=== PATIENT | female | born 1950 | race Caucasian/White ===

== ENCOUNTER 2016-07-08 17:01 | Inpatient (IN) | payer BC, OTHER ==
[~2016-07-08] VITALS: Ht 165.1 cm; Wt 132.0 kg
[~2016-07-08 17:01] MED LIST: AMIT10TA13 PO; ATOR10 PO; CALCCHW25 PO; CIPR500T4 PO; FLUO20TA20 PO; HYDR-3533 PO; IRBE150T49 PO; LANTUS2P SC; NOVOLOGP2 SQ; PANT20TA PO; TAB-TAB PO; VERA360C PO; ZYRT10TA12 PO
[2016-07-08] MEDS ORDERED: METOPROLOL TARTRATE 25 MG TAB PO PRN (21:30)
[2016-07-08] MEDS ORDERED: INSULIN HUMAN REGULAR 1,000 UNITS/10 ML VIAL SQ PRN (21:30)
[2016-07-08] MEDS ORDERED: SODIUM CHLORID 0.9% 500 ML IV SCH (21:30)
[2016-07-08 21:33] VITALS: BP 180/67; PULSE 58; RESP 16; TEMP 97.8; O2SAT 95
[2016-07-08] MEDS ORDERED: HYDROmorphone HCL PF 1 MG/ML VIAL IV PUSH PRN (22:00)
[2016-07-08] MEDS ORDERED: ENOXAPARIN SODIUM 40 MG/0.4 ML SYRINGE SQ SCH (22:00)
[2016-07-08] MEDS ORDERED: NALOXONE HCL 0.4 MG/ML AMP IV PRN (22:00)
[2016-07-08] MEDS ORDERED: BISACODYL 10 MG SUPP PR PRN (22:00)
[2016-07-08] MEDS ORDERED: SODIUM CHLORIDE 0.9% FLUSH 5 ML FLUSH FLUSH PRN (22:00)
[2016-07-08] MEDS ORDERED: ONDANSETRON HCL 4 MG/2 ML VIAL IVP PRN (22:00)
[2016-07-08] MEDS ORDERED: ACETAMINOPHEN 325 MG TAB PO PRN (22:00)
[2016-07-08] MEDS ORDERED: GLUCAGON 1 MG/ML VIAL OTHER PRN (22:15)
[2016-07-08] MEDS ORDERED: DEXTROSE 50% IN WATER 50 ML VIAL(D50) IV PUSH PRN (22:15)
[2016-07-08] MEDS: INSULIN DETEMIR 100 UNITS/ML VIAL SQ SCH (22:34)
[2016-07-08] MEDS: PANTOPRAZOLE SOD 20 MG DELAYED RELEASE TAB PO SCH (22:34)
[2016-07-08] MEDS: ATORVASTATIN 10 MG TAB PO SCH (22:34)
[2016-07-08] MEDS ORDERED: MULT-135 PO (23:02)
[2016-07-08] MEDS ORDERED: IRBE150T15 PO (23:02)
[2016-07-08] MEDS ORDERED: LIPI10TA PO (23:02)
[2016-07-08] MEDS ORDERED: LANTUS2P SQ (23:02)
[2016-07-08] MEDS ORDERED: CALC750T PO (23:02)
[2016-07-08] MEDS ORDERED: PANT20TA2 PO (23:02)
[2016-07-08] MEDS ORDERED: [UNRECOGNIZED DRUG - CODE] PO (23:02)
[2016-07-08] MEDS ORDERED: ZYRT10CA PO (23:02)
[2016-07-08] MEDS ORDERED: FLUO1TAB17 PO (23:02)
[2016-07-08] MEDS ORDERED: NOVOLOGP2 SQ (23:02)
[2016-07-08] MEDS ORDERED: NOVORP2 SQ (23:02)
[2016-07-08 23:30] VITALS: BP 183/89; PULSE 67; RESP 16; TEMP 98.1; O2SAT 95
[2016-07-09 04:00] VITALS: BP 184/69; PULSE 68; RESP 16; TEMP 99.5; O2SAT 96
[2016-07-09] MEDS: ACETAMINOPHEN/HYDROcodone 325 MG/5 MG TAB PO PRN (04:27)
[2016-07-09] MEDS: INSULIN ASPART SUPPLEMENTAL SCALE SQ SCH ×4 (06:23→20:08)
[2016-07-09 07:25] VITALS: BP 153/69; PULSE 74; RESP 17; TEMP 97.8; O2SAT 93
[2016-07-09 07:36] LABS: APTT (PATIENT) 29.3 SEC (24.3-30.1); AUTOMATED NEUTROPHIL # 6.2 TH/MM3 (1.8-7.7); BASOPHIL # 0.1 TH/MM3 (0-0.2); BASOPHIL % 1.3 % (0.0-2.0); EOSINOPHIL # 0.2 TH/MM3 (0-0.4); EOSINOPHIL % 1.9 % (0.0-4.0); HEMATOCRIT 30.6 % (35.0-46.0); HEMO FLAGS DIFF FINAL; LYMPH % 17.4 % (9.0-44.0); LYMPHOCYTE # 1.6 TH/MM3 (1.0-4.8); MEAN CELL VOLUME 84.9 FL (80.0-100.0); MEAN CORPUSCULAR HEMOGLOBIN 27.3 PG (27.0-34.0); MEAN CORPUSCULAR HGB CONC 32.1 % (32.0-36.0); NEUT % 66.4 % (16.0-70.0); PLATELET COUNT 228 TH/MM3 (150-450); PROTHROMBIN TIME - PATIENT 10.7 SEC (9.8-11.6); RED CELL DISTRIBUTION WIDTH 13.3 % (11.6-17.2); WHITE BLOOD COUNT 9.4 TH/MM3 (4.0-11.0)
[2016-07-09 07:48] LABS: POTASSIUM 4.6 MEQ/L (3.5-5.1)
[2016-07-09] MEDS ORDERED: FAMOTIDINE 20 MG/2 ML VIAL ONE (08:05)
[2016-07-09] MEDS ORDERED: ACETAMINOPHEN 1000 MG/100 ML VIAL IV ONE (08:05)
[2016-07-09] MEDS ORDERED: DEXAMETHASONE SOD PHOS 4 MG/ML VIAL ONE (08:05)
[2016-07-09] MEDS ORDERED: ARTIFICIAL TEARS OPTH OINT 3.5 APPLIC/3.5 GM TUBO ONE (08:05)
[2016-07-09] MEDS: FLUoxetine HCL 20 MG CAP PO SCH (08:29)
[2016-07-09] MEDS: VERAPAMIL HCL 180 MG SUSTAINED RELEASE TAB PO SCH (08:29)
[2016-07-09] MEDS: LOSARTAN 50 MG TAB PO SCH (08:29)
[2016-07-09] MEDS ORDERED: SODIUM CHLORIDE 0.9% FLUSH 5 ML FLUSH FLUSH SCH (09:00)
[2016-07-09] MEDS ORDERED: PNEUMOCOCCAL POLYVALENT INJ 25 MCG/0.5 ML SYR IM ONE (09:00)
[2016-07-09] MEDS ORDERED: ATORVASTATIN 10 MG TAB PO SCH ×2 (09:00)
--- NOTE | 2016-07-09 09:13 | EKG ---
Date Performed: 07/09/2016 Time Performed: 05:35:12 PTAGE: 66 years EKG: Sinus rhythm . Nonspecific lateral ST abnormality. Borderline ECG PREVIOUS TRACING : 10/24/2015 16.54 No significant change from previous tracing noted. DOCTOR: Jeffrey Muro Interpretating Date/Time 07/09/2016 09:12:03
[2016-07-09] MEDS ORDERED: ceFAZolin INJ 1,000 MG VIAL IV ONE ×2 (09:21→12:07)
[2016-07-09] MEDS ORDERED: GENTAMICIN SULFATE 80 MG/2 ML VIAL ONE (09:54)
[2016-07-09] MEDS ORDERED: ONDANSETRON HCL 4 MG/2 ML VIAL IV PUSH ONE (14:17)
[2016-07-09] MEDS ORDERED: hydrALAZINE HCL 20 MG/ML VIAL IV ONE (14:17)
[2016-07-09] MEDS ORDERED: PROPOFOL 200 MG/20 ML AMP IV ONE (14:17)
[2016-07-09] MEDS ORDERED: PHENYLEPH/NS 1000 MCG/10 ML SYR IV ONE (14:17)
[2016-07-09] MEDS ORDERED: SODIUM CHLOR 0.9% 250 ML INJ 250 ML IV ONE (14:18)
[2016-07-09] MEDS ORDERED: LACTATED RINGER'S 1000 ML INJ 1,000 ML IV ONE (14:18)
[2016-07-09] MEDS ORDERED: oxyCODONE/ACETAMINOPHEN 5 MG/325 MG TAB PO PRN (15:00)
[2016-07-09] MEDS ORDERED: SODIUM CHLORIDE 0.9% FLUSH 5 ML FLUSH IVF PRN (15:00)
[2016-07-09] MEDS ORDERED: Post-op Orders (for Pharmacy) MISC XX ONE (15:00)
[2016-07-09] MEDS ORDERED: ACETAMINOPHEN 325 MG TAB PO PRN (15:00)
[2016-07-09] MEDS ORDERED: MISCELLANEOUS NURSING INFORMATION XX PRN (15:00)
--- NOTE | 2016-07-09 15:03 | PD.ORT.PN ---
Subjective Subjective Remarks C/O right shoulder and left elbow pain Objective Vitals Vital Signs Date Time Temp Pulse Resp B/P Pulse Ox O2 Delivery O2 Flow Rate FiO2 07/09/16 07:25 97.8 74 17 153/69 93 07/09/16 04:00 99.5 68 16 184/69 96 07/08/16 23:30 98.1 67 16 183/89 95 07/08/16 21:33 97.8 58 16 180/67 95 I/O 07/08/16 07/08/16 07/08/16 07/09/16 07/09/16 07/09/16 07:00 15:00 23:00 07:00 15:00 23:00 Intake Total 240 ml 0 ml Balance 240 ml 0 ml Intake Oral 240 ml 0 ml # Voids 1 1 # Bowel Movements 0 0 Result Diagram: 07/09/16 0700 07/09/16 0700 Other Results Laboratory Tests Test 07/09/16 07:00 Prothrombin Time 10.7 SEC (9.8-11.6) Prothromb Time International 1.0 RATIO Ratio Objective Remarks see full dictation Assessment & Plan Problem List: (1) Supracondylar fracture of distal end of femur with intracondylar extension (2) Closed 3-part fracture of proximal end of left humerus Assessment and Plan Options discussed Informed consent obtained for ORIF of left elbow and right shoulder Shemar Yusuf MD Jul 09, 2016 15:03
[2016-07-09] MEDS ORDERED: fentaNYL CITRATE 250 MCG/5 ML AMP ONE (15:04)
[2016-07-09] MEDS ORDERED: MIDAZOLAM HCL 2 MG/2 ML VIAL ONE (15:04)
[2016-07-09] MEDS: LACTATED RINGER'S 1000 ML INJ 1,000 ML IV SCH ×2 (15:05→20:09)
[2016-07-09] MEDS ORDERED: MORPHINE SULFATE 4 MG/ML INJ ONE (15:05)
[2016-07-09] MEDS ORDERED: DO NOT ADM ANY ANTICOAGULANT DRUGS XX PRN (15:09)
--- NOTE | 2016-07-09 15:10 | RADRPT ---
EXAM DATE/TIME: 07/09/2016 14:15 [facility] COMPARISON: No previous studies available for comparison. INDICATIONS : ORIF left elbow. MEDICAL HISTORY : None. SURGICAL HISTORY : None. ENCOUNTER: Initial ACUITY: 1 day PAIN SCORE: Non-responsive. LOCATION: Left elbow CONCLUSION: Fluoroscopic images during placement of compression plates and screws along the distal humerus and pr oximal ulna fixating fractures. Lew Odonnell MD on July 09, 2016 at 15:08 Board Certified Radiologist. This report was verified electronically.
--- NOTE | 2016-07-09 15:10 | RADRPT ---
EXAM DATE/TIME: 07/09/2016 11:00 [facility] COMPARISON: No previous studies available for comparison. INDICATIONS : ORIF right shoulder. MEDICAL HISTORY : None. SURGICAL HISTORY : None. ENCOUNTER: Initial ACUITY: 1 day PAIN SCORE: Non-responsive. LOCATION: Right proximal shoulder CONCLUSION: Fluoroscopic images during placement compression plate and screws along the right humerus fixating fr acture in near-anatomic in alignment. Lew Odonnell MD on July 09, 2016 at 15:08 Board Certified Radiologist. This report was verified electronically.
--- NOTE | 2016-07-09 15:41 | HHI.HP ---
[facility] Fran Head MD Admission Diagnosis Diagnoses: Chief Complaint: fall Travel History International Travel<30 Days: No Contact w/Intl Traveler <30 Da: No History of Present Illness This is 66 y/o F with Pmhx of T2DM, GERD, HTN, and HLD who p/w fall. Patient was seen after surgery so was sedated but able to answer simple questions. History taken from MR in chart and confirmed with patient. Patient stated that she trip and injured her arm. Patient was transferred from [place]. She stated that she did not have any LOC, CP, SOB, palpitation of lightheadedness/ dizziness. Patient was seen in [facility] and found to have supracondylar fracture of distal end of femur with intracondylar extension and closed 3 part fracture of proximal end of left humerus. patient does have hx of multiple fractures including the elbow. She was on prednisone for 20 years. Review of Systems Constitutional: DENIES: Diaphoretic episodes, Fatigue, Fever, Weight gain, Weight loss, Chills, Dizziness, Change in appetite, Night Sweats Endocrine: DENIES: Abnorml menstrual pattern, Heat/cold intolerance, Polydipsia , Polyuria, Polyphagia Eyes: DENIES: Blurred vision, Diplopia, Eye inflammation, Eye pain, Vision loss , Photosensitivity, Double Vision Ears, nose, mouth, throat: DENIES: Tinnitus, Hearing loss, Vertigo, Nasal discharge, Oral lesions, Throat pain, Hoarseness, Ear Pain, Running Nose, Epistaxis, Sinus Pain, Toothache, Odynophagia Respiratory: DENIES: Apneas, Cough, Snoring, Wheezing, Hemoptysis, Sputum production, Shortness of breath Cardiovascular: DENIES: Chest pain, Palpitations, Syncope, Dyspnea on Exertion , PND, Lower Extremity Edema, Orthopnea, Claudication Gastrointestinal: DENIES: Abdominal pain, Black stools, Bloody stools, Constipation, Diarrhea, Nausea, Vomiting, Difficulty Swallowing, Anorexia Genitourinary: DENIES: Abnormal vaginal bleeding, Dysmenorrhea, Dyspareunia, Sexual dysfunction, Urinary frequency, Urinary incontinence, Urgency, Hematuria , Dysuria, Nocturia, Vaginal discharge Musculoskeletal: COMPLAINS OF: Joint pain, DENIES: Muscle aches, Stiffness, Joint Swelling, Back pain, Neck pain Integumentary: DENIES: Abnormal pigmentation, Pruritus, Rash, Nail changes, Breast masses, Breast skin changes, Nipple discharge Hematologic/lymphatic: DENIES: Bruising, Lymphadenopathy Immunologic/allergic: DENIES: Eczema, Urticaria Neurologic: DENIES: Abnormal gait, Headache, Localized weakness, Paresthesias, Seizures, Speech Problems, Tremor, Poor Balance Psychiatric: DENIES: Anxiety, Confusion, Mood changes, Depression, Hallucinations, Agitation, Suicidal Ideation, Homicidal Ideation, Delusions Past Family Social History Past Medical History T2DM, GERD, HTN, HLP, hx of ovarian ca, fibromyalgia. Past Surgical History hysterectomy, gastric sleeve, cholecystectomy, left ankle surgery Reported Medications Reported Meds & Active Scripts Active Lortab 5 mg/325 mg (Hydrocodone/Acetaminophen 5 mg/325 mg) 1 Tab 1 Tab PO Q6H PRN Cipro (Ciprofloxacin HCl) 500 Mg Tab 500 Mg PO BID Reported Novolog Inj (Insulin Aspart) 1,000 Unit/10 Ml Vial 10 Units SQ ACHS SLIDING SCALE Isoptin SR (Verapamil HCl) 240 Mg Tab 360 Mg PO DAILY Pantoprazole (Pantoprazole Sodium) 20 Mg Tab 20 Mg PO HS Multi Vitamin (Multiple Vitamin) 1 Tab Tab 1 Tab PO DAILY Irbesartan 150 Mg Tab 150 Mg PO DAILY Lantus Inj (Insulin Glargine) 1,000 Unit/10 Ml Vial 35 Units SQ HS Novolin R Inj (Insulin Human Regular) 1,000 Unit/10 Ml Vial 2-12 Units SQ ACHS Max dose at bedtime:( )units; sugars less than 70,(0) units; sugars 150-199,(2)unit; sugars 200-249,(4)units; sugars 250-299,(7) units; sugars 300-349,(10)units; sugars greater than 349,(12)units Fluoxetine HCl (Fluoxetine HCl (Pmdd)) 20 Mg Tab 20 Mg PO DAILY Zyrtec Allergy (Cetirizine HCl) 10 Mg Cap 10 Mg PO HS Calcium + D + K (Calcium-Vitamins D & K) 750-500-40 Mg-Unit-Mcg Tab 1 Tab PO DAILY Lipitor (Atorvastatin Calcium) 10 Mg Tab 10 Mg PO HS Pantoprazole Sodium 20 Mg Tab 20 PO HS Lantus (Insulin Glargine) 100 Units/Ml Inj 35 Unit SC HS Zyrtec (Cetirizine HCl) 10 Mg Tab 10 Mg PO HS Calcium + D (Calcium Carbonate/Cholecalciferol) Chw 1 Tab PO DAILY DO NOT TAKE UNTIL RESTARTED BY DR. HARDWICK Fluoxetine Hcl (Fluoxetine HCl) 20MG Cap 1 Cap PO DAILY Multivitamin (Multivitamins) 1 Tab Tab 1 Tab PO DAILY Novolog (Insulin Aspart) 100 Units/Ml Inj 10 Units SQ DIRECTED DO NOT TAKE UNTIL RESTARTED BY DR. HARDWICK SLIDING SCALE Avapro (Irbesartan) 150 Mg Tab 150 Mg PO DAILY Elavil (Amitriptyline HCl) 10 Mg Tab 20 Mg PO HS Lipitor (Atorvastatin Calcium) 10 Mg Tab 10 Mg PO DAILY DO NOT TAKE UNTIL RESTARTED BY DR. HARDWICK Isoptin Sr (Verapamil HCl) 360 Mg Cap 360 Mg PO DAILY Allergies: Coded Allergies: Penicillin (Verified Allergy, Intermediate, Hives, 10/24/15) Sulfa (Verified Allergy, Intermediate, Hives, 10/24/15) Active Ordered Medications Current Medications Lactated Ringer's 1,000 ml @ 30 mls/hr Q24H IV ; Start 07/08/16 at 21:30 Sodium Chloride (NS 500 ml Inj) 500 ml @ 30 mls/hr [id number] IV ; Start 07/08/16 at 21:30; Stop 07/09/16 at 21:29 Insulin Human Regular (NovoLIN R INJ) See Protocol Table ... UNSCH X1 PRN SQ SEE PROTOCOL; Start 07/08/16 at 21:30; Stop 07/08/16 at 22:11; Status DC Metoprolol Tartrate (Lopressor) 25 mg UNSCH X1 PRN PO SEE LABEL COMMENTS; Start 07/08/16 at 21:30; Stop 07/09/16 at 21:29 IV Flush (NS Flush) 2 ml UNSCH PRN FLUSH FLUSH AFTER USING IV ACCESS; Start at 22:00; Stop 07/09/16 at 15:07; Status DC IV Flush (NS Flush) 2 ml BID FLUSH ; Start 07/09/16 at 09:00; Stop 07/09/16 at 15:07; Status DC Acetaminophen (Tylenol) 650 mg Q4H PRN PO Fever, Headache, Pain 1-4; Start at 22:00; Stop 07/09/16 at 15:06; Status DC Ondansetron HCl (Zofran Inj) 4 mg Q6H PRN IVP NAUSEA OR VOMITING; Start at 22:00 Bisacodyl (Dulcolax Supp) 10 mg DAILY PRN [place] CONSTIPATION; Start 07/08/16 at 22 :00 Magnesium Hydroxide (Milk Of Magnesia Liq) 30 ml Q12H PRN PO CONSTIPATION; Start 07/08/16 at 22:00 Enoxaparin Sodium (Lovenox Inj) 40 mg Q24H SQ ; Start 07/08/16 at 22:00; Stop at 22:00; Status DC Naloxone HCl (Narcan Inj) 0.4 mg UNSCH PRN IV SEE LABEL COMMENTS; Start at 22:00 Acetaminophen/ Hydrocodone Bitart ([place] 5-325 Mg) 1 tab Q6H PRN PO PAIN SCALE 5 TO 10 Last administered on 07/09/16t 04:27; Start 07/08/16 at 22:00 Hydromorphone HCl (Dilaudid Pf Inj) 0.5 mg Q4H PRN IV PUSH BREAKTHROUGH PAIN Last administered on 07/08/16t 22:18; Start 07/08/16 at 22:00; Stop 07/09/16 at 15:06; Status DC Pneumococcal Polyvalent Vaccine (Pneumovax-23 Inj) 25 mcg ONCE ONCE IM ; Start 07/09/16 at 09:00; Stop 07/09/16 at 09:01; Status Cancel Atorvastatin Calcium (Lipitor) 10 mg DAILY PO ; Start 07/09/16 at 09:00; Stop at 09:00; Status DC Fluoxetine HCl (PROzac) 20 mg DAILY PO ; Start 07/09/16 at 09:00 Losartan Potassium (Cozaar) 50 mg DAILY PO ; Start 07/09/16 at 09:00 Verapamil HCl (Isoptin Sr) 360 mg DAILY PO ; Start 07/09/16 at 09:00 Atorvastatin Calcium (Lipitor) 10 mg HS PO ; Start 07/09/16 at 09:00; Stop 07/09 at 09:00; Status DC Insulin Detemir (Levemir Inj) 20 units HS SQ Last administered on 07/08/16 22: 34; Start 07/08/16 at 22:15 Dextrose (D50w (Vial) Inj) 25 ml UNSCH PRN IV PUSH HYPOGLYCEMIA-SEE COMMENTS; Start 07/08/16 at 22:15 Glucagon (Glucagon Inj) 1 mg UNSCH PRN OTHER HYPOGLYCEMIA-SEE COMMENTS; Start 07/08/16 at 22:15 Insulin Aspart (NovoLOG SUPPLEMENTAL SCALE) 1 ACHS SLIDING SCALE SQ ; Start at 07:00 Pantoprazole Sodium (Protonix) 20 mg HS PO Last administered on 07/08/16 22:34 ; Start 07/08/16 at 22:15 Atorvastatin Calcium (Lipitor) 10 mg HS PO Last administered on 07/08/16 22:34 ; Start 07/08/16 at 22:30 Acetaminophen (Ofirmev Inj) 1,000 mg STK-MED ONCE IV ; Start 07/09/16 at 08:05; Stop 07/09/16 at 08:06; Status DC Artificial Tears (Lacrilube Opht Oint) 3.5 applic STK-MED ONCE .ROUTE ; Start at 08:05; Stop 07/09/16 at 08:06; Status DC Famotidine (Pepcid Inj) 20 mg STK-MED ONCE .ROUTE ; Start 07/09/16 at 08:05; Stop 07/09/16 at 08:06; Status DC Dexamethasone Sodium Phosphate (Decadron Inj) 4 mg STK-MED ONCE .ROUTE ; Start 07/09/16 at 08:05; Stop 07/09/16 at 08:06; Status DC Gentamicin Sulfate (Gentamicin Inj) 240 mg STK-MED ONCE .ROUTE Last administered on 07/09/16 10:00; Start 07/09/16 at 09:54; Stop 07/09/16 at 09:55 ; Status DC Pneumococcal Polyvalent Vaccine (Pneumovax-23 Inj) 25 mcg ONCE ONCE IM ; Start 07/10/16 at 10:00; Stop 07/10/16 at 10:01 Cefazolin Sodium (Ancef Inj) 2,000 mg STK-MED ONCE IV Last administered on 07/09 09:21; Start 07/09/16 at 09:21; Stop 07/09/16 at 12:20; Status DC Cefazolin Sodium 1000 mg 1,000 mg STK-MED ONCE IV Last administered on t 12:07; Start 07/09/16 at 12:07; Stop 07/09/16 at 12:20; Status DC Lactated Ringer's (Lr 1000 ml Inj) 1,000 ml @ 100 mls/hr Q10H IV ; Start at 14:50 IV Flush (NS Flush) 2 ml UNSCH PRN IVF FLUSH AFTER USING IV ACCESS; Start 07/09 at 15:00 IV Flush (NS Flush) 2 ml BID IVF ; Start 07/09/16 at 21:00 Miscellaneous Information (Post-op Orders (for Pharmacy)) STAT ONCE XX ; Start 07/09/16 at 15:00; Stop 07/09/16 at 15:05; Status DC Enoxaparin Sodium 40 mg 40 mg Q24H SQ ; Start 07/10/16 at 14:00 Cefazolin Sodium/ Dextrose (Ancef 2 Gm Premix) 50 ml @ 100 mls/hr Q8H IV ; Start 07/09/16 at 16:00 Miscellaneous Information UNSCH PRN XX SEE LABEL COMMENTS; Start 07/09/16 at 15:00 Oxycodone/ Acetaminophen (Percocet 5-325 Mg) 1 tab Q4H PRN PO PAIN LESS THAN 5 ON SCALE; Start 07/09/16 at 15:00 Oxycodone/ Acetaminophen (Percocet 5-325 Mg) 2 tab Q6H PRN PO PAIN GREATER THAN/EQUAL TO 5; Start 07/09/16 at 15:00 Acetaminophen (Tylenol) 650 mg Q6H PRN PO Temperature > 101.5; Start 07/09/16 at 15:00 Multivitamins/ Minerals Therapeutic (Theragran M Tab) 1 tab DAILY PO ; Start at 09:00 Hydromorphone HCl (Dilaudid BRAKE TESTER Inj) 6 mg UNSCH IV ; Start 07/09/16 at 15:00 BRAKE TESTER Dosage Infused (Pha) 1 Q8HR OTHER ; Start 07/09/16 at 22:00 Midazolam HCl (Versed Inj) 2 mg STK-MED ONCE .ROUTE ; Start 07/09/16 at 15:04; Stop 07/09/16 at 15:05; Status DC Fentanyl Citrate (fentaNYL INJ) 100 mcg STK-MED ONCE .ROUTE ; Start 07/09/16 at 15:04; Stop 07/09/16 at 15:05; Status DC Fentanyl Citrate (fentaNYL INJ) 250 mcg STK-MED ONCE .ROUTE ; Start 07/09/16 at 15:04; Stop 07/09/16 at 15:05; Status DC Morphine Sulfate (Morphine Inj) 8 mg STK-MED ONCE .ROUTE ; Start 07/09/16 at 15: 05; Stop 07/09/16 at 15:06; Status DC Family History noncontributory Social History 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 denied tobacco or alcohol use. Physical Exam Vital Signs Vital Signs Date Time Temp Pulse Resp B/P Pulse Ox O2 Delivery O2 Flow Rate FiO2 07/09/16 15:04 99.0 99 14 188/70 97 Nasal Cannula 4 07/09/16 07:25 97.8 74 17 153/69 93 07/09/16 04:00 99.5 68 16 184/69 96 07/08/16 23:30 98.1 67 16 183/89 95 07/08/16 21:33 97.8 58 16 180/67 95 Physical Exam GENERAL: This is a well-nourished, well-developed patient, in no apparent distress but is sedated due to recent general anesthesia use. SKIN: No rashes, ecchymoses or lesions. Cool and dry. HEAD: Atraumatic. Normocephalic. No temporal or scalp tenderness. EYES: Pupils equal round and reactive. Extraocular motions intact. No scleral icterus. No injection or drainage. ENT: Nose without bleeding, purulent drainage or septal hematoma. Throat without erythema, tonsillar hypertrophy or exudate. Uvula midline. Airway patent. NECK: Trachea midline. No JVD or lymphadenopathy. Supple, nontender, no meningeal signs. CARDIOVASCULAR: Regular rate and rhythm without murmurs, gallops, or rubs. RESPIRATORY: Clear to auscultation. Breath sounds equal bilaterally. No wheezes , rales, or rhonchi. GASTROINTESTINAL: Abdomen soft, non-tender, nondistended. No hepato-splenomegaly , or palpable masses. No guarding. MUSCULOSKELETAL: Extremities without clubbing, cyanosis, or edema. No joint tenderness, effusion, or edema noted. No calf tenderness. Negative Homans sign bilaterally. NEUROLOGICAL:drowsy. Cranial nerves II through XII intact. Motor and sensory grossly within normal limits. Five out of 5 muscle strength in all muscle groups. Normal speech. Laboratory Laboratory Tests Test 07/09/16 07/09/16 07:00 09:00 White Blood Count 9.4 Red Blood Count 3.60 Hemoglobin 9.8 Hematocrit 30.6 Mean Corpuscular Volume 84.9 Mean Corpuscular Hemoglobin 27.3 Mean Corpuscular Hemoglobin 32.1 Concent Red Cell Distribution Width 13.3 Platelet Count 228 Mean Platelet Volume 9.0 Neutrophils (%) (Auto) 66.4 Lymphocytes (%) (Auto) 17.4 Monocytes (%) (Auto) 13.0 Eosinophils (%) (Auto) 1.9 Basophils (%) (Auto) 1.3 Neutrophils # (Auto) 6.2 Lymphocytes # (Auto) 1.6 Monocytes # (Auto) 1.2 Eosinophils # (Auto) 0.2 Basophils # (Auto) 0.1 CBC Comment DIFF FINAL Differential Comment Prothrombin Time 10.7 Prothromb Time International 1.0 Ratio Activated Partial 29.3 Thromboplast Time Sodium Level 142 Potassium Level 4.6 Chloride Level 109 Carbon Dioxide Level 23.0 Anion Gap 10 Blood Urea Nitrogen 34 Creatinine 1.65 Estimat Glomerular Filtration 31 Rate Random Glucose 143 Calcium Level 9.3 Blood Type O POSITIVE Antibody Screen NEGATIVE Crossmatch Leukocyte-Reduced Red Blood Cells Blood Bank Comment Result Diagram: 07/09/16 0700 07/09/16 0700 Imaging Last Impressions Shoulder X-Ray 07/09/16 0000 Signed Impressions: Service Date/Time: Saturday, July 09, 2016 11:00 - CONCLUSION: Fluoroscopic images during placement compression plate and screws along the right humerus fixating fracture in near-anatomic in alignment. Lew Odonnell MD Elbow X-Ray 07/09/16 0000 Signed Impressions: Service Date/Time: Saturday, July 09, 2016 14:15 - CONCLUSION: Fluoroscopic images during placement of compression plates and screws along the distal humerus and proximal ulna fixating fractures. Lew Odonnell MD Assessment and Plan Assessment and Plan 66 y/o F Supracondylar fracture of distal end of femur with intracondylar extension/ closed 3-part proximal end of left humerus -s/p ORIF shoulder and elbow today. -being managed by [facility] T2DM/HTN/HLPGERD -home medication already resumed -SSI CKD -? chronic in nature -strict I/O -continue to monitor. -avoid nephrotoxins. -patient on fluid. -continue to monitor Cr. -will need to try to obtain baseline. maybe difficult to obtain MR since today is sunday. DVT prophylaxis -lovenox. Code Status FULL Physician Certification 2 Midnight Certification Type: Admission for Inpatient Services Order for Inpatient Services The services are ordered in accordance with Medicare regulations or non- Medicare payer requirements, as applicable. In the case of services not specified as inpatient-only, they are appropriately provided as inpatient services in accordance with the 2-midnight benchmark. Estimated LOS (days): 3 3 days is the estimated time the patient will need to remain in the hospital, assuming treatment plan goals are met and no additional complications. Post-Hospital Plan: Home Health Sultana Cordero MD Jul 09, 2016 15:41
--- NOTE | 2016-07-09 15:47 | RADRPT ---
EXAM DATE/TIME: 07/09/2016 15:12 [facility] COMPARISON: No previous studies available for comparison. INDICATIONS : Central line placement MEDICAL HISTORY : Diabetes mellitus type II. SURGICAL HISTORY : None. ENCOUNTER: Initial ACUITY: 1 day PAIN SCORE: Non-responsive. LOCATION: Bilateral chest FINDINGS: A single view of the chest demonstrates the lungs to be symmetrically aerated without evidence of mas s, infiltrate or effusion. The cardiomediastinal contours are unremarkable. Osseous structures are intact. CONCLUSION: 1. Right jugular central line with tip in the right atrium. No pneumothorax. Lew Odonnell MD on July 09, 2016 at 15:45 Board Certified Radiologist. This report was verified electronically.
--- NOTE | 2016-07-09 15:59 | MB ---
cc: ERICA LOPEZ M.D. DATE OF CONSULTATION: 07/09/2016. REASON FOR CONSULTATION: Consultation requested to evaluate right shoulder displaced fracture and left elbow intra-articular displaced fracture. 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 She tripped and fell and landed on both upper extremities and sustained fractures to her right shoulder which was displaced and her left elbow which was an intra-articular supracondylar, intercondylar and displaced. She was seen and [facility] in [place] where a Dr. Wagner contacted me via telephone and requested transfer to [facility] for treatment as the patient lives in [facility]. The patient was transferred to the medical service last night with a consultation placed with the undersigned. PAST MEDICAL HISTORY: She has significant past medical history of: 1. Diabetes. 2. History of ovarian cancer status post hysterectomy. 3. History of gallbladder disease and a laparoscopic cholecystectomy. 4. Additionally, she has had a sleeve gastrectomy. 5. Previous orthopedic surgery for her left ankle, her right elbow and her left wrist. 6. She had prior previous tympanostomy tubes. MEDICATIONS: Her regular medications are: 1. Zyrtec. 2. Irbesartan for blood pressure. 3. Amitriptyline. 4. Fluoxetine. 5. Verapamil. 6. Lipitor. 7. NovoLog. 8. Lantus. 9. Calcium. 10. Vitamin D. 11. Propranolol. 12. Ciprofloxacin. ALLERGIES: She reports an allergy to: 1. PENICILLIN. 2. SULFA. PHYSICAL EXAMINATION: GENERAL: The patient is alert, oriented AND appropriate. HEAD, EYES, EARS, NOSE, THROAT: Her head is atraumatic and normocephalic. There are no bruises about her face. UPPER EXTREMITIES: She has tenderness to palpation about her right shoulder. The skin is intact. Left upper extremity is in a splint. She has tenderness to palpation about the elbow. The shoulder and wrist are nontender. Both hands she is able to flex and extend. She has good capillary refill and pulses intact. LOWER EXTREMITIES: Good range of motion of hips, knees and ankle with motor and sensory neurologic examinations intact. IMAGING STUDIES: X-rays reviewed right shoulder which shows a three-part fracture with shaft and valgus impacted humeral head and a displaced greater trochanteric fragment. The left elbow x-rays show comminuted intra-articular supracondylar. These x-rays were reviewed off a computer disk brought from the outside hospital. ASSESSMENT: Displaced right shoulder fracture and displaced intraarticular left elbow fracture. MEDICAL DECISION-MAKING: Her condition was discussed and the options of treatment were discussed. The recommendation is surgical repair. Risks and benefits were thoroughly discussed including discussion of the risk of infection, nerve damage, blood vessel damage, failure of the internal fixation, need for arthroplasty type surgery including total elbow replacement, the risk of stiffness and mechanical complications which would necessitate revision surgery in both locations, the possibility of anesthetic complications, medical complications, and unforeseen possible complications. All of her questions were answered. A detailed informed consent was obtained. MD KAYCEE Leach/NORI /3:06 PM /3:50 PM
[2016-07-09] MEDS: HYDROmorphone HCL PCA 6 MG/30 ML IV SCH (16:00)
[2016-07-09] MEDS: ceFAZolin 2 GM PREMIX 50 ML IV SCH ×2 (16:00→23:07)
[2016-07-09 16:14] VITALS: BP 125/60; PULSE 79; RESP 16; TEMP 97.2; O2SAT 97
[2016-07-09] MEDS: LACTATED RINGER'S 1000 ML IV SCH (20:00)
[2016-07-09] MEDS: INSULIN DETEMIR 100 UNITS/ML VIAL SQ SCH (20:08)
[2016-07-09] MEDS: MAGNESIUM HYDROXIDE SUSP 30 ML CUP PO PRN (20:09)
[2016-07-09] MEDS: ATORVASTATIN 10 MG TAB PO SCH (20:09)
[2016-07-09] MEDS: PANTOPRAZOLE SOD 20 MG DELAYED RELEASE TAB PO SCH (20:09)
[2016-07-09] MEDS: SODIUM CHLORIDE 0.9% FLUSH 5 ML FLUSH IVF SCH (20:10)
[2016-07-09 20:20] VITALS: BP 177/79; PULSE 78; RESP 18; TEMP 96; O2SAT 100
--- NOTE | 2016-07-09 20:59 | MP ---
cc: ERICA LOPEZ M.D. DATE OF SURGERY 07/09/16 PREOPERATIVE DIAGNOSIS 1. Left elbow supracondylar intercondylar displaced fracture. 2. Right shoulder displaced three-part fracture. PROCEDURE 1. Left elbow open reduction, internal fixation supracondylar intercondylar fracture using 2.6 Synthes headless screws and Synthes specialty locking plate supracondylar humeral system. 2. Right shoulder/proximal humerus open reduction, internal fixation using Synthes specialty locking plate. ANESTHETIC General SURGEON Erica Lopez MD METAL DRILL OPERATOR SURGEON Phan TOM ESTIMATED BLOOD LOSS 200 cc. DRAINS None. SPECIMEN None. COMPLICATIONS None known. INDICATION Ludy Horta is a 66-year-old female who sustained a fall while attending a conference with students in [place] and was transferred from [facility] to [facility] with a displaced fracture her right shoulder and left elbow. The risks, benefits were thoroughly discussed and a detail informed consent was obtained. The application assistant, Phan Real, is an advanced registered nurse practitioner. His skill set was medically necessary for the performance of both operations. PROCEDURE The patient is brought to the operating room. She was placed under general anesthetic. We operated on the right shoulder first. We prepped and draped in the usual sterile fashion. C-arm was on the opposite side, anterior approach to shoulder, deltopectoral interval mobilizing the cephalic vein, subperiosteal the proximal humerus, identified the fracture fragments. Tag suture posterior superior in the rotator cuff to mobilize this fragment. Close to the anatomic alignment of the fragments as much as could be and then provisional fixation with K-wires then alignment of the Synthes specialty plate and then clamped this and locked this and K-wire this into place and then proceeded with our various locking screws and cortical screws with overall excellent fixation. Full range of motion of the shoulder when we were done without crepitation. Multiple final x-rays obtained, irrigated out with copious amounts of irrigation. The original suture was incorporated into the plate. We proceeded to close in layers absorbable suture and we used subcuticular on the skin with Steri-Strips applied. The entire set up for the right shoulder was taken down and the left upper extremity, left elbow was draped and prepped in the usual sterile fashion. IV antibiotics were additionally given and we proceeded to prep and drape and proceeded with reviewing our time-out and then proceeding with a direct posterior approach to the elbow and first we made medial and lateral windows and mobilized the ulnar nerve and placed a temporary vessel loop. Based on a combination of the fracture decision was made for osteotomy. Osteotomy performed. We did a provisional drilling for later repair and then flipped the osteotomy down and further mobilized the fracture fragments and obtained an excellent exposure and then proceeded to piecemeal place the fracture fragments together. The trochlear groove was split into a front and a back and three headless screws were used to recreate this. Then there was an additional two fragments that were connected to this, one inferiorly in the metaphyseal region and one posteriorly and then additional intra-articular fracture fragment was applied with two horizontal headless screws. Then we proceeded to use fracture clamp and anatomically align the metaphysis to the diaphysis and then proceeded with our ulnar-sided plate and placed our distal locking screws and our mid locking screws excellent fixation. Then proceeded with the lateral column reconstruction. There was some missing bone but there was capitellar bone which did align with the radius and we preserved our ligaments and we used a tension band technique posteriorly on the posterior aspect of the lateral column and pulled this into position and then fashioned and our posterior column plate and proceeded to place cortical and locking screws as indicated. We were looking directly in the joint to see the length of the screws and we did not see any of the screws come into the joint and with range of motion there was no crepitation. We irrigated out with copious amounts of irrigation. We visualized this alignment fluoroscopically and saw that overall hardware looked good, although, it is confusing because the headless screws are partly in the cartilage but not in the joint and then we anatomically aligned our osteotomy of the olecranon and then fixated this with the original plan screw and then two additional screws with excellent fixation. We now irrigated out throughout with copious amounts of irrigation and took our final x-rays, AP, lateral and multiple views. Again, irrigate out with copious amounts of irrigation and proceeded to close in layers absorbable sutures. Ultimately, annalise are used on the skin. Xeroform applied, posterior mold splint applied. The patient was awoken and returned to the recovery room in stable condition. MD KAYCEE Leach/ANGEL /3:13 PM /8:46 PM
[2016-07-09] MEDS: PCA - TOTAL MG DILAUDID DELIVERED PER SHIFT OTHER SCH (22:00)
[2016-07-09 23:45] VITALS: BP 138/63; PULSE 77; RESP 18; TEMP 96.9; O2SAT 99
[2016-07-10 03:40] VITALS: BP 133/62; PULSE 87; RESP 18; TEMP 97.9; O2SAT 98
[2016-07-10] MEDS: HYDROmorphone HCL PCA 6 MG/30 ML IV SCH (03:50)
[2016-07-10] MEDS: PCA - TOTAL MG DILAUDID DELIVERED PER SHIFT OTHER SCH ×3 (06:00→22:00)
[2016-07-10] MEDS: INSULIN ASPART SUPPLEMENTAL SCALE SQ SCH ×4 (06:11→21:52)
[2016-07-10 06:24] LABS: HEMATOCRIT 26.1 % (35.0-46.0); REVIEW FLAG FINAL
[2016-07-10 07:41] VITALS: BP 118/53; PULSE 82; RESP 18; TEMP 98.9; O2SAT 93
[2016-07-10] MEDS: LOSARTAN 50 MG TAB PO SCH (09:00)
[2016-07-10] MEDS: VERAPAMIL HCL 180 MG SUSTAINED RELEASE TAB PO SCH (09:00)
[2016-07-10] MEDS: SODIUM CHLORIDE 0.9% FLUSH 5 ML FLUSH IVF SCH ×2 (09:00→21:00)
[2016-07-10] MEDS ORDERED: PNEUMOCOCCAL POLYVALENT INJ 25 MCG/0.5 ML SYR IM ONE (10:00)
[2016-07-10] MEDS: ceFAZolin 2 GM PREMIX 50 ML IV SCH ×2 (10:01→16:00)
[2016-07-10] MEDS: FLUoxetine HCL 20 MG CAP PO SCH (10:03)
[2016-07-10] MEDS: MULTIVITAMINS/MINERALS THERAPEUTIC TAB PO SCH (10:03)
[2016-07-10] MEDS: oxyCODONE/ACETAMINOPHEN 5 MG/325 MG TAB PO PRN ×2 (10:04→17:55)
[2016-07-10] MEDS: LACTATED RINGER'S 1000 ML INJ 1,000 ML IV SCH (10:50)
--- NOTE | 2016-07-10 10:52 | PD.ORT.PN ---
Subjective Subjective Remarks Patient comfortable. Pain controlled. 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 Objective Vitals Vital Signs Date Time Temp Pulse Resp B/P Pulse Ox O2 Delivery O2 Flow Rate FiO2 07/10/16 07:41 98.9 82 18 118/53 93 07/10/16 03:50 17 07/10/16 03:40 97.9 87 18 133/62 98 07/09/16 23:45 96.9 77 18 138/63 99 07/09/16 22:20 Nasal Cannula 3.00 07/09/16 22:00 17 07/09/16 20:20 96.0 78 18 177/79 100 07/09/16 20:07 100 Nasal Cannula 3.00 07/09/16 16:14 97.2 79 16 125/60 97 07/09/16 16:00 14 07/09/16 16:00 98.7 77 14 146/68 96 Nasal Cannula 3 07/09/16 15:45 75 14 145/70 96 Nasal Cannula 3 07/09/16 15:30 75 14 140/68 97 Nasal Cannula 3 07/09/16 15:15 86 14 152/75 97 Nasal Cannula 4 07/09/16 15:04 99.0 99 14 188/70 97 Nasal Cannula 4 I/O 07/09/16 07/09/16 07/09/16 07/10/16 07/10/16 07/10/16 07:00 15:00 23:00 07:00 15:00 23:00 Intake Total 0 ml 0 ml 3738 ml 1371 ml Output Total 1050 ml 500 ml Balance 0 ml 0 ml 2688 ml 871 ml Intake Oral 0 ml 0 ml 480 ml 480 ml IV Total 458 ml 891 ml Other 2800 ml Output Urine Total 850 ml 500 ml Estimated Blood Loss 200 ml # Voids 1 0 # Bowel Movements 0 0 0 0 Result Diagram: 07/10/16 0605 07/09/16 0700 Objective Remarks Right shoulder dressing intact C/D/I 2+ radial pulses good movement of digits NVI Left elbow posterior splint and miroslava wrap in place digits swollen good movement of digits denies numbness/tingling +sensation Assessment & Plan Ortho Post Op Day #: 1 Problem List: (1) Supracondylar fracture of distal end of femur with intracondylar extension (2) Closed 3-part fracture of proximal end of left humerus Assessment and Plan 1) ORIF of right shoulder 2) ORIF of left elbow Pain management Occupational therapy - LUE: No ROM. RUE: Active ROM, no weight bearing. Physical therapy: Gait training D/C planning SNF vs Home Monitor Phan Real Jul 10, 2016 10:52
[2016-07-10 11:15] VITALS: BP 108/54; PULSE 83; RESP 18; TEMP 97.8; O2SAT 92
[2016-07-10 12:47] VITALS: O2SAT 99
[2016-07-10] MEDS: ENOXAPARIN SODIUM 40 MG/0.4 ML SYRINGE SQ SCH (14:48)
[2016-07-10 15:50] VITALS: BP 126/59; PULSE 90; RESP 18; TEMP 99.5; O2SAT 93
--- NOTE | 2016-07-10 16:49 | HHI.PR ---
Subjective Remarks patient has no complaints. he stated pain is controlled with the FLIGHT MANAGER pump. Tolerating diet. Objective Vitals Vital Signs Date Time Temp Pulse Resp B/P Pulse Ox O2 Delivery O2 Flow Rate FiO2 07/10/16 12:47 99 21 07/10/16 11:15 97.8 83 18 108/54 92 07/10/16 07:41 98.9 82 18 118/53 93 07/10/16 03:50 17 07/10/16 03:40 97.9 87 18 133/62 98 07/09/16 23:45 96.9 77 18 138/63 99 07/09/16 22:20 Nasal Cannula 3.00 07/09/16 22:00 17 07/09/16 20:20 96.0 78 18 177/79 100 07/09/16 20:07 100 Nasal Cannula 3.00 I/O 07/09/16 07/09/16 07/09/16 07/10/16 07/10/16 07/10/16 07:00 15:00 23:00 07:00 15:00 23:00 Intake Total 0 ml 0 ml 3738 ml 1371 ml Output Total 1050 ml 500 ml Balance 0 ml 0 ml 2688 ml 871 ml Intake Oral 0 ml 0 ml 480 ml 480 ml IV Total 458 ml 891 ml Other 2800 ml Output Urine Total 850 ml 500 ml Estimated Blood Loss 200 ml # Voids 1 0 # Bowel Movements 0 0 0 0 Result Diagram: 07/10/16 0605 07/09/16 0700 Objective Remarks Gen NAD CV RRR. no r/m/g Abd soft NDNT Ext left arm in sling. sensation is intact. Medications and IVs Current Medications Lactated Ringer's 1,000 ml @ 30 mls/hr Q24H IV ; Start 07/08/16 at 21:30 Sodium Chloride (NS 500 ml Inj) 500 ml @ 30 mls/hr [id number] IV ; Start 07/08/16 at 21:30; Stop 07/09/16 at 21:29; Status DC Insulin Human Regular (NovoLIN R INJ) See Protocol Table ... UNSCH X1 PRN SQ SEE PROTOCOL; Start 07/08/16 at 21:30; Stop 07/08/16 at 22:11; Status DC Metoprolol Tartrate (Lopressor) 25 mg UNSCH X1 PRN PO SEE LABEL COMMENTS; Start 07/08/16 at 21:30; Stop 07/09/16 at 21:29; Status DC IV Flush (NS Flush) 2 ml UNSCH PRN FLUSH FLUSH AFTER USING IV ACCESS; Start at 22:00; Stop 07/09/16 at 15:07; Status DC IV Flush (NS Flush) 2 ml BID FLUSH ; Start 07/09/16 at 09:00; Stop 07/09/16 at 15:07; Status DC Acetaminophen (Tylenol) 650 mg Q4H PRN PO Fever, Headache, Pain 1-4; Start at 22:00; Stop 07/09/16 at 15:06; Status DC Ondansetron HCl (Zofran Inj) 4 mg Q6H PRN IVP NAUSEA OR VOMITING; Start at 22:00 Bisacodyl (Dulcolax Supp) 10 mg DAILY PRN GA CONSTIPATION; Start 07/08/16 at 22 :00 Magnesium Hydroxide (Milk Of Helena Cheng) 30 ml Q12H PRN PO CONSTIPATION Last administered on 07/09/16 20:09; Start 07/08/16 at 22:00 Enoxaparin Sodium (Lovenox Inj) 40 mg Q24H SQ ; Start 07/08/16 at 22:00; Stop at 22:00; Status DC Naloxone HCl (Narcan Inj) 0.4 mg UNSCH PRN IV SEE LABEL COMMENTS; Start at 22:00 Acetaminophen/ Hydrocodone Bitart ([place] 5-325 Mg) 1 tab Q6H PRN PO PAIN SCALE 5 TO 10 Last administered on 07/09/16 04:27; Start 07/08/16 at 22:00 Hydromorphone HCl (Dilaudid Pf Inj) 0.5 mg Q4H PRN IV PUSH BREAKTHROUGH PAIN Last administered on 07/08/16 22:18; Start 07/08/16 at 22:00; Stop 07/09/16 at 15:06; Status DC Pneumococcal Polyvalent Vaccine (Pneumovax-23 Inj) 25 mcg ONCE ONCE IM ; Start 07/09/16 at 09:00; Stop 07/09/16 at 09:01; Status Cancel Atorvastatin Calcium (Lipitor) 10 mg DAILY PO ; Start 07/09/16 at 09:00; Stop at 09:00; Status DC Fluoxetine HCl (PROzac) 20 mg DAILY PO Last administered on 07/10/16 10:03; Start 07/09/16 at 09:00 Losartan Potassium (Cozaar) 50 mg DAILY PO ; Start 07/09/16 at 09:00 Verapamil HCl (Isoptin Sr) 360 mg DAILY PO ; Start 07/09/16 at 09:00 Atorvastatin Calcium (Lipitor) 10 mg HS PO ; Start 07/09/16 at 09:00; Stop 07/09 at 09:00; Status DC Insulin Detemir (Levemir Inj) 20 units HS SQ Last administered on 07/09/16 20: 08; Start 07/08/16 at 22:15 Dextrose (D50w (Vial) Inj) 25 ml UNSCH PRN IV PUSH HYPOGLYCEMIA-SEE COMMENTS; Start 07/08/16 at 22:15 Glucagon (Glucagon Inj) 1 mg UNSCH PRN OTHER HYPOGLYCEMIA-SEE COMMENTS; Start 07/08/16 at 22:15 Insulin Aspart (NovoLOG SUPPLEMENTAL SCALE) 1 ACHS SLIDING SCALE SQ Last administered on 07/10/16 12:20; Start 07/09/16 at 07:00 Pantoprazole Sodium (Protonix) 20 mg HS PO Last administered on 07/09/16 20:09 ; Start 07/08/16 at 22:15 Atorvastatin Calcium (Lipitor) 10 mg HS PO Last administered on 07/09/16 20:09 ; Start 07/08/16 at 22:30 Acetaminophen (Ofirmev Inj) 1,000 mg STK-MED ONCE IV ; Start 07/09/16 at 08:05; Stop 07/09/16 at 08:06; Status DC Artificial Tears (Lacrilube Opht Oint) 3.5 applic STK-MED ONCE .ROUTE ; Start at 08:05; Stop 07/09/16 at 08:06; Status DC Famotidine (Pepcid Inj) 20 mg STK-MED ONCE .ROUTE ; Start 07/09/16 at 08:05; Stop 07/09/16 at 08:06; Status DC Dexamethasone Sodium Phosphate (Decadron Inj) 4 mg STK-MED ONCE .ROUTE ; Start 07/09/16 at 08:05; Stop 07/09/16 at 08:06; Status DC Gentamicin Sulfate (Gentamicin Inj) 240 mg STK-MED ONCE .ROUTE Last administered on 07/09/16 10:00; Start 07/09/16 at 09:54; Stop 07/09/16 at 09:55 ; Status DC Pneumococcal Polyvalent Vaccine (Pneumovax-23 Inj) 25 mcg ONCE ONCE IM ; Start 07/10/16 at 10:00; Stop 07/10/16 at 10:01; Status DC Cefazolin Sodium (Ancef Inj) 2,000 mg STK-MED ONCE IV Last administered on 07/09 09:21; Start 07/09/16 at 09:21; Stop 07/09/16 at 12:20; Status DC Cefazolin Sodium 1000 mg 1,000 mg STK-MED ONCE IV Last administered on 12:07; Start 07/09/16 at 12:07; Stop 07/09/16 at 12:20; Status DC Lactated Ringer's (Lr 1000 ml Inj) 1,000 ml @ 100 mls/hr Q10H IV Last administered on 07/09/16 20:09; Start 07/09/16 at 14:50 IV Flush (NS Flush) 2 ml UNSCH PRN IVF FLUSH AFTER USING IV ACCESS; Start 07/09 at 15:00 IV Flush (NS Flush) 2 ml BID IVF Last administered on 07/09/16 20:10; Start at 21:00 Miscellaneous Information (Post-op Orders (for Pharmacy)) STAT ONCE XX ; Start 07/09/16 at 15:00; Stop 07/09/16 at 15:05; Status DC Enoxaparin Sodium 40 mg 40 mg Q24H SQ Last administered on 07/10/16 14:48; Start 07/10/16 at 14:00 Cefazolin Sodium/ Dextrose (Ancef 2 Gm Premix) 50 ml @ 100 mls/hr Q8H IV Last administered on 07/10/16 10:01; Start 07/09/16 at 16:00 Miscellaneous Information UNSCH PRN XX SEE LABEL COMMENTS; Start 07/09/16 at 15:00 Oxycodone/ Acetaminophen (Percocet 5-325 Mg) 1 tab Q4H PRN PO PAIN LESS THAN 5 ON SCALE; Start 07/09/16 at 15:00 Oxycodone/ Acetaminophen (Percocet 5-325 Mg) 2 tab Q6H PRN PO PAIN GREATER THAN/EQUAL TO 5 Last administered on 07/10/16 10:04; Start 07/09/16 at 15:00 Acetaminophen (Tylenol) 650 mg Q6H PRN PO Temperature > 101.5; Start 07/09/16 at 15:00 Multivitamins/ Minerals Therapeutic (Theragran M Tab) 1 tab DAILY PO Last administered on 07/10/16 10:03; Start 07/10/16 at 09:00 Hydromorphone HCl (Dilaudid FLIGHT MANAGER Inj) 6 mg UNSCH IV Last administered on 03:50; Start 07/09/16 at 15:00 FLIGHT MANAGER Dosage Infused (Pha) 1 Q8HR OTHER Last administered on 07/10/16 06:00; Start 07/09/16 at 22:00 Midazolam HCl (Versed Inj) 2 mg STK-MED ONCE .ROUTE ; Start 07/09/16 at 15:04; Stop 07/09/16 at 15:05; Status DC Fentanyl Citrate (fentaNYL INJ) 100 mcg STK-MED ONCE .ROUTE ; Start 07/09/16 at 15:04; Stop 07/09/16 at 15:05; Status DC Fentanyl Citrate (fentaNYL INJ) 250 mcg STK-MED ONCE .ROUTE ; Start 07/09/16 at 15:04; Stop 07/09/16 at 15:05; Status DC Morphine Sulfate (Morphine Inj) 8 mg STK-MED ONCE .ROUTE ; Start 07/09/16 at 15: 05; Stop 07/09/16 at 15:06; Status DC Miscellaneous Information ALL NURSING DEPARTME... UNSCH PRN XX SEE LABEL COMMENTS; Start 07/09/16 at 15:09; Stop 07/10/16 at 15:08; Status DC A/P Assessment and Plan Displaced right shoulder fracture and displaced intraarticular left elbow fracture. -s/p ORIF shoulder and elbow on 07/10/16. -being managed by Ortho -on FLIGHT MANAGER. T2DM/HTN/HLPGERD -continue home medication -SSI CKD -chronic she is at baseline. -strict I/O -continue to monitor. -avoid nephrotoxins. -continue to monitor Cr. DVT prophylaxis -on lovenox Dispo: once on oral medication will be d/c with HH or to SNF. She is on FLIGHT MANAGER now which Ortho is managing. Sultana Cordero MD Jul 10, 2016 16:49
[2016-07-10 20:50] VITALS: BP 148/65; PULSE 90; RESP 17; TEMP 99; O2SAT 94
[2016-07-10] MEDS: ATORVASTATIN 10 MG TAB PO SCH (21:51)
[2016-07-10] MEDS: PANTOPRAZOLE SOD 20 MG DELAYED RELEASE TAB PO SCH (21:51)
[2016-07-10] MEDS: INSULIN DETEMIR 100 UNITS/ML VIAL SQ SCH (21:52)
[2016-07-10] MEDS: LACTATED RINGER'S 1000 ML IV SCH (22:03)
[2016-07-11] VITALS (8 sets, daily range): BP systolic 95–161; BP diastolic 47–67; PULSE 78–90; RESP 17–18; TEMP 97.4–100; O2SAT 93–96
[2016-07-11] MEDS: ceFAZolin 2 GM PREMIX 50 ML IV SCH ×3 (00:45→17:05)
[2016-07-11] MEDS: PCA - TOTAL MG DILAUDID DELIVERED PER SHIFT OTHER SCH ×3 (06:00→22:00)
[2016-07-11] MEDS: INSULIN ASPART SUPPLEMENTAL SCALE SQ SCH ×4 (06:23→21:59)
[2016-07-11 06:49] LABS: HEMATOCRIT 23.2 % (35.0-46.0); REVIEW FLAG FINAL
[2016-07-11] MEDS ORDERED: OXYC1TAB63 PO (07:50)
--- NOTE | 2016-07-11 07:56 | PD.ORT.PN ---
Subjective Subjective Remarks C/O right shoulder and left elbow pain controlled Objective Vitals Vital Signs Date Time Temp Pulse Resp B/P Pulse Ox O2 Delivery O2 Flow Rate FiO2 07/11/16 06:00 18 07/11/16 00:15 99.1 88 17 161/63 93 07/10/16 22:00 18 07/10/16 20:50 99.0 90 17 148/65 94 07/10/16 18:55 18 07/10/16 15:50 99.5 90 18 126/59 93 07/10/16 14:00 16 07/10/16 12:47 99 21 07/10/16 11:15 97.8 83 18 108/54 92 I/O 07/10/16 07/10/16 07/10/16 07/11/16 07/11/16 07/11/16 07:00 15:00 23:00 07:00 15:00 23:00 Intake Total 1371 ml 720 ml 1226 ml 705 ml Output Total 500 ml 1000 ml 900 ml Balance 871 ml -280 ml 326 ml 705 ml Intake Oral 480 ml 720 ml 480 ml IV Total 891 ml 746 ml 705 ml Output Urine Total 500 ml 1000 ml 900 ml # Voids 0 # Bowel Movements 0 0 0 Result Diagram: 07/11/16 0620 07/09/16 0700 Objective Remarks Right shoulder dressing intact C/D/I 2+ radial pulses good movement of digits NVI Left elbow posterior splint and miroslava wrap in place digits mild/moderate swelling good movement of digits motor intact sensation intact but slightly decreased in thumb Assessment & Plan Ortho Post Op Day #: 2 Problem List: (1) Supracondylar fracture of distal end of femur with intracondylar extension (2) Closed 3-part fracture of proximal end of left humerus Assessment and Plan 1) ORIF of right shoulder 2) ORIF of left elbow Pain management 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 RUE: Active ROM, no weight bearing. Physical therapy: Gait training D/C planning inhouse rehab Ok to D/C from ortho [facility] today or tomorrow Follow up in office in 2 weeks Shemar Yusuf MD Jul 11, 2016 07:56
[2016-07-11] MEDS: SODIUM CHLORIDE 0.9% FLUSH 5 ML FLUSH IVF SCH ×2 (09:00→21:00)
[2016-07-11] MEDS: LOSARTAN 50 MG TAB PO SCH (10:01)
[2016-07-11] MEDS: MULTIVITAMINS/MINERALS THERAPEUTIC TAB PO SCH (10:01)
[2016-07-11] MEDS: FLUoxetine HCL 20 MG CAP PO SCH (10:01)
[2016-07-11] MEDS: VERAPAMIL HCL 180 MG SUSTAINED RELEASE TAB PO SCH (10:01)
[2016-07-11] MEDS: oxyCODONE/ACETAMINOPHEN 5 MG/325 MG TAB PO PRN ×3 (10:02→21:58)
[2016-07-11] MEDS: MAGNESIUM HYDROXIDE SUSP 30 ML CUP PO PRN (10:02)
--- NOTE | 2016-07-11 11:04 | HHI.PR ---
Subjective Remarks Patient stated she feels fatigue and weak but otherwise no complaints. Denied any pain. no BM yet. Objective Vitals Vital Signs Date Time Temp Pulse Resp B/P Pulse Ox O2 Delivery O2 Flow Rate FiO2 07/11/16 08:00 97.4 88 18 151/67 94 07/11/16 06:00 18 07/11/16 04:00 100.0 90 17 159/65 93 07/11/16 00:15 99.1 88 17 161/63 93 07/10/16 22:00 18 07/10/16 20:50 99.0 90 17 148/65 94 07/10/16 18:55 18 07/10/16 15:50 99.5 90 18 126/59 93 07/10/16 14:00 16 07/10/16 12:47 99 21 07/10/16 11:15 97.8 83 18 108/54 92 I/O 07/10/16 07/10/16 07/10/16 07/11/16 07/11/16 07/11/16 07:00 15:00 23:00 07:00 15:00 23:00 Intake Total 1371 ml 720 ml 1226 ml 945 ml Output Total 500 ml 1000 ml 900 ml 1450 ml Balance 871 ml -280 ml 326 ml -505 ml Intake Oral 480 ml 720 ml 480 ml 240 ml IV Total 891 ml 746 ml 705 ml Output Urine Total 500 ml 1000 ml 900 ml 1450 ml # Voids 0 # Bowel Movements 0 0 0 0 Result Diagram: 07/11/16 0620 07/09/16 0700 Objective Remarks Gen NAD CV RRR. no r/m/g Abd soft NDNT Ext left arm in sling. sensation is intact. Medications and IVs Current Medications Lactated Ringer's 1,000 ml @ 30 mls/hr Q24H IV Last administered on 07/10/16t 22:03; Start 07/08/16 at 21:30 Sodium Chloride (NS 500 ml Inj) 500 ml @ 30 mls/hr [id number] IV ; Start 07/08/16 at 21:30; Stop 07/09/16 at 21:29; Status DC Insulin Human Regular (NovoLIN R INJ) See Protocol Table ... UNSCH X1 PRN SQ SEE PROTOCOL; Start 07/08/16 at 21:30; Stop 07/08/16 at 22:11; Status DC Metoprolol Tartrate (Lopressor) 25 mg UNSCH X1 PRN PO SEE LABEL COMMENTS; Start 07/08/16 at 21:30; Stop 07/09/16 at 21:29; Status DC IV Flush (NS Flush) 2 ml UNSCH PRN FLUSH FLUSH AFTER USING IV ACCESS; Start at 22:00; Stop 07/09/16 at 15:07; Status DC IV Flush (NS Flush) 2 ml BID FLUSH ; Start 07/09/16 at 09:00; Stop 07/09/16 at 15:07; Status DC Acetaminophen (Tylenol) 650 mg Q4H PRN PO Fever, Headache, Pain 1-4; Start at 22:00; Stop 07/09/16 at 15:06; Status DC Ondansetron HCl (Zofran Inj) 4 mg Q6H PRN IVP NAUSEA OR VOMITING; Start at 22:00 Bisacodyl (Dulcolax Supp) 10 mg DAILY PRN [place] CONSTIPATION; Start 07/08/16 at 22 :00 Magnesium Hydroxide (Milk Of Magnrubio Liq) 30 ml Q12H PRN PO CONSTIPATION Last administered on 07/11/16 10:02; Start 07/08/16 at 22:00 Enoxaparin Sodium (Lovenox Inj) 40 mg Q24H SQ ; Start 07/08/16 at 22:00; Stop at 22:00; Status DC Naloxone HCl (Narcan Inj) 0.4 mg UNSCH PRN IV SEE LABEL COMMENTS; Start at 22:00 Acetaminophen/ Hydrocodone Bitart ([place] 5-325 Mg) 1 tab Q6H PRN PO PAIN SCALE 5 TO 10 Last administered on 07/09/16 04:27; Start 07/08/16 at 22:00 Hydromorphone HCl (Dilaudid Pf Inj) 0.5 mg Q4H PRN IV PUSH BREAKTHROUGH PAIN Last administered on 07/08/16 22:18; Start 07/08/16 at 22:00; Stop 07/09/16 at 15:06; Status DC Pneumococcal Polyvalent Vaccine (Pneumovax-23 Inj) 25 mcg ONCE ONCE IM ; Start 07/09/16 at 09:00; Stop 07/09/16 at 09:01; Status Cancel Atorvastatin Calcium (Lipitor) 10 mg DAILY PO ; Start 07/09/16 at 09:00; Stop at 09:00; Status DC Fluoxetine HCl (PROzac) 20 mg DAILY PO Last administered on 07/11/16 10:01; Start 07/09/16 at 09:00 Losartan Potassium (Cozaar) 50 mg DAILY PO Last administered on 07/11/16 10:01 ; Start 07/09/16 at 09:00 Verapamil HCl (Isoptin Sr) 360 mg DAILY PO Last administered on 07/11/16 10: 01; Start 07/09/16 at 09:00 Atorvastatin Calcium (Lipitor) 10 mg HS PO ; Start 07/09/16 at 09:00; Stop 07/09 at 09:00; Status DC Insulin Detemir (Levemir Inj) 20 units HS SQ Last administered on 07/10/16 21: 52; Start 07/08/16 at 22:15 Dextrose (D50w (Vial) Inj) 25 ml UNSCH PRN IV PUSH HYPOGLYCEMIA-SEE COMMENTS; Start 07/08/16 at 22:15 Glucagon (Glucagon Inj) 1 mg UNSCH PRN OTHER HYPOGLYCEMIA-SEE COMMENTS; Start 07/08/16 at 22:15 Insulin Aspart (NovoLOG SUPPLEMENTAL SCALE) 1 ACHS SLIDING SCALE SQ Last administered on 07/11/16 06:23; Start 07/09/16 at 07:00 Pantoprazole Sodium (Protonix) 20 mg HS PO Last administered on 07/10/16 21:51 ; Start 07/08/16 at 22:15 Atorvastatin Calcium (Lipitor) 10 mg HS PO Last administered on 07/10/16 21:51 ; Start 07/08/16 at 22:30 Acetaminophen (Ofirmev Inj) 1,000 mg STK-MED ONCE IV ; Start 07/09/16 at 08:05; Stop 07/09/16 at 08:06; Status DC Artificial Tears (Lacrilube Opht Oint) 3.5 applic STK-MED ONCE .ROUTE ; Start at 08:05; Stop 07/09/16 at 08:06; Status DC Famotidine (Pepcid Inj) 20 mg STK-MED ONCE .ROUTE ; Start 07/09/16 at 08:05; Stop 07/09/16 at 08:06; Status DC Dexamethasone Sodium Phosphate (Decadron Inj) 4 mg STK-MED ONCE .ROUTE ; Start 07/09/16 at 08:05; Stop 07/09/16 at 08:06; Status DC Gentamicin Sulfate (Gentamicin Inj) 240 mg STK-MED ONCE .ROUTE Last administered on 07/09/16 10:00; Start 07/09/16 at 09:54; Stop 07/09/16 at 09:55 ; Status DC Pneumococcal Polyvalent Vaccine (Pneumovax-23 Inj) 25 mcg ONCE ONCE IM ; Start 07/10/16 at 10:00; Stop 07/10/16 at 10:01; Status DC Cefazolin Sodium (Ancef Inj) 2,000 mg STK-MED ONCE IV Last administered on 07/09 09:21; Start 07/09/16 at 09:21; Stop 07/09/16 at 12:20; Status DC Cefazolin Sodium 1000 mg 1,000 mg STK-MED ONCE IV Last administered on 12:07; Start 07/09/16 at 12:07; Stop 07/09/16 at 12:20; Status DC Lactated Ringer's (Lr 1000 ml Inj) 1,000 ml @ 100 mls/hr Q10H IV Last administered on 07/09/16 20:09; Start 07/09/16 at 14:50 IV Flush (NS Flush) 2 ml UNSCH PRN IVF FLUSH AFTER USING IV ACCESS; Start 07/09 at 15:00 IV Flush (NS Flush) 2 ml BID IVF Last administered on 07/09/16 20:10; Start at 21:00 Miscellaneous Information (Post-op Orders (for Pharmacy)) STAT ONCE XX ; Start 07/09/16 at 15:00; Stop 07/09/16 at 15:05; Status DC Enoxaparin Sodium 40 mg 40 mg Q24H SQ Last administered on 07/10/16 14:48; Start 07/10/16 at 14:00 Cefazolin Sodium/ Dextrose (Ancef 2 Gm Premix) 50 ml @ 100 mls/hr Q8H IV Last administered on 07/11/16 10:02; Start 07/09/16 at 16:00 Miscellaneous Information UNSCH PRN XX SEE LABEL COMMENTS; Start 07/09/16 at 15:00 Oxycodone/ Acetaminophen (Percocet 5-325 Mg) 1 tab Q4H PRN PO PAIN LESS THAN 5 ON SCALE; Start 07/09/16 at 15:00 Oxycodone/ Acetaminophen (Percocet 5-325 Mg) 2 tab Q6H PRN PO PAIN GREATER THAN/EQUAL TO 5 Last administered on 07/11/16 10:02; Start 07/09/16 at 15:00 Acetaminophen (Tylenol) 650 mg Q6H PRN PO Temperature > 101.5; Start 07/09/16 at 15:00 Multivitamins/ Minerals Therapeutic (Theragran M Tab) 1 tab DAILY PO Last administered on 07/11/16 10:01; Start 07/10/16 at 09:00 Hydromorphone HCl (Dilaudid RECORDS ANALYST Inj) 6 mg UNSCH IV Last administered on 03:50; Start 07/09/16 at 15:00 RECORDS ANALYST Dosage Infused (Pha) 1 Q8HR OTHER Last administered on 07/11/16 06:00; Start 07/09/16 at 22:00 Midazolam HCl (Versed Inj) 2 mg STK-MED ONCE .ROUTE ; Start 07/09/16 at 15:04; Stop 07/09/16 at 15:05; Status DC Fentanyl Citrate (fentaNYL INJ) 100 mcg STK-MED ONCE .ROUTE ; Start 07/09/16 at 15:04; Stop 07/09/16 at 15:05; Status DC Fentanyl Citrate (fentaNYL INJ) 250 mcg STK-MED ONCE .ROUTE ; Start 07/09/16 at 15:04; Stop 07/09/16 at 15:05; Status DC Morphine Sulfate (Morphine Inj) 8 mg STK-MED ONCE .ROUTE ; Start 07/09/16 at 15: 05; Stop 07/09/16 at 15:06; Status DC Miscellaneous Information ALL NURSING DEPARTME... UNSCH PRN XX SEE LABEL COMMENTS; Start 07/09/16 at 15:09; Stop 07/10/16 at 15:08; Status DC A/P Assessment and Plan Displaced right shoulder fracture and displaced intraarticular left elbow fracture. -s/p ORIF shoulder and elbow on 07/10/16. -being managed by Ortho -on percocet and RECORDS ANALYST d/jesus alberto. -ortho okay for discharge today. T2DM/HTN/HLPGERD -continue home medication -SSI CKD -chronic she is at baseline. -strict I/O -continue to monitor. -avoid nephrotoxins. -continue to monitor Cr. DVT prophylaxis -on lovenox Dispo: patient cleared for discharge today. d/w case management and waiting for approval from [employer]. She stated she will call me for discharge when approved. Sultana Cordero MD Jul 11, 2016 11:04
[2016-07-11] MEDS: ENOXAPARIN SODIUM 40 MG/0.4 ML SYRINGE SQ SCH (14:55)
[2016-07-11] MEDS: LACTATED RINGER'S 1000 ML IV SCH (21:30)
[2016-07-11] MEDS: ATORVASTATIN 10 MG TAB PO SCH (21:56)
[2016-07-11] MEDS: PANTOPRAZOLE SOD 20 MG DELAYED RELEASE TAB PO SCH (21:56)
[2016-07-11] MEDS: INSULIN DETEMIR 100 UNITS/ML VIAL SQ SCH (21:59)
[2016-07-12] VITALS (7 sets, daily range): BP systolic 86–157; BP diastolic 47–67; PULSE 69–82; RESP 16–18; TEMP 97.6–99.3; O2SAT 94–98
[2016-07-12] MEDS: ceFAZolin 2 GM PREMIX 50 ML IV SCH ×3 (00:07→16:12)
[2016-07-12] MEDS: PCA - TOTAL MG DILAUDID DELIVERED PER SHIFT OTHER SCH ×3 (06:00→22:00)
[2016-07-12] MEDS: INSULIN ASPART SUPPLEMENTAL SCALE SQ SCH ×3 (06:36→21:25)
[2016-07-12 08:41] LABS: HEMATOCRIT 21.2 % (35.0-46.0); REVIEW FLAG FINAL
[2016-07-12] MEDS: LOSARTAN 50 MG TAB PO SCH (09:14)
[2016-07-12] MEDS: FLUoxetine HCL 20 MG CAP PO SCH (09:15)
[2016-07-12] MEDS ORDERED: SODIUM CHLOR 0.9% 250 ML INJ 250 ML IV ONE (09:15)
[2016-07-12] MEDS: ACETAMINOPHEN/HYDROcodone 325 MG/5 MG TAB PO PRN (09:15)
[2016-07-12] MEDS: VERAPAMIL HCL 180 MG SUSTAINED RELEASE TAB PO SCH (09:15)
[2016-07-12] MEDS: MULTIVITAMINS/MINERALS THERAPEUTIC TAB PO SCH (09:15)
--- NOTE | 2016-07-12 13:39 | HHI.DS ---
Discharge Summary Admission Date Jul 08, 2016 at 21:08 Discharge Date: Jul 12, 2016 Admitting Diagnosis Displaced right shoulder fracture and displaced intraarticular left elbow fracture. (1) Closed 3-part fracture of proximal end of left humerus ICD Code: S42.202A Diagnosis: Principal (2) Left elbow fracture ICD Code: S42.402A Diagnosis: Principal Procedures ORIF shoulder and elbow on 07/10/16. Brief History - From Admission This is 66 y/o F with Pmhx of T2DM, GERD, HTN, and HLD who p/w fall. Patient was seen after surgery so was sedated but able to answer simple questions. History taken from MR in chart and confirmed with patient. Patient stated that she trip and injured her arm. Patient was transferred from [place]. She stated that she did not have any LOC, CP, SOB, palpitation of lightheadedness/ dizziness. Patient was seen in [facility] and found to have supracondylar fracture of distal end of femur with intracondylar extension and closed 3 part fracture of proximal end of left humerus. patient does have hx of multiple fractures including the elbow. She was on prednisone for 20 years. CBC/BMP: 07/12/16 0750 07/09/16 0700 Significant Findings Laboratory Tests Test 07/10/16 07/11/16 07/12/16 06:05 06:20 07:50 Hemoglobin 8.2 GM/DL 7.6 GM/DL 7.0 GM/DL (11.6-15.3) (11.6-15.3) (11.6-15.3) Hematocrit 26.1 % 23.2 % 21.2 % (35.0-46.0) (35.0-46.0) (35.0-46.0) Imaging Last Impressions Shoulder X-Ray 07/09/16 0000 Signed Impressions: Service Date/Time: Saturday, July 09, 2016 11:00 - CONCLUSION: Fluoroscopic images during placement compression plate and screws along the right humerus fixating fracture in near-anatomic in alignment. Lew Odonnell MD Elbow X-Ray 07/09/16 0000 Signed Impressions: Service Date/Time: Saturday, July 09, 2016 14:15 - CONCLUSION: Fluoroscopic images during placement of compression plates and screws along the distal humerus and proximal ulna fixating fractures. Lew Odonnell MD Chest X-Ray 07/09/16 0000 Signed Impressions: Service Date/Time: Saturday, July 09, 2016 15:12 - CONCLUSION: 1. Right jugular central line with tip in the right atrium. No pneumothorax. Lew Odonnell MD PE at Discharge Gen NAD CV RRR. no r/m/g Abd soft NDNT Ext left arm in sling. sensation is intact. Pt update on day of discharge patient stated she feels better but still fatigue. She has no other concerns. Denied any episodes of bleeding. 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 Hospital Course Displaced right shoulder fracture and displaced intraarticular left elbow fracture. -transferred here from [place]. -s/p ORIF shoulder and elbow on 07/10/16 by Ortho. -Initially on SENIOR QUALITY CONTROL TECHNICIAN pain pump but was able to transition to oral medications. -recovered well during hospital course and was able to tolerate diet. Anemia -throughout hospital course Hg did trend down most likely due to surgery. She had no signs of active bleeding during hospital course. She was transfused with 1 unit of PRBC. T2DM/HTN/HLPGERD -home medication was continued. CKD -chronic patient was at baseline on admission. Pt Condition on Discharge: Stable Discharge Disposition: Rehab Inpatient Discharge Time: <= 30 minutes Discharge Instructions DIET: Follow Instructions for: Heart Healthy Diet, Diabetic Diet Activities you can perform: See Additionl Instruction Other Activity Instructions: as instructed by Orthopedics. Follow up Referrals: Orthopedics - 2 Weeks @ [facility] with Phan Real New Medications: Oxycodone-Acetaminophen (Oxycodone-Acetaminophen) 5-325 mg Tab 1 TAB PO Q4H PRN PAIN LESS THAN 5 ON SCALE #60 TAB Continued Medications: Amitriptyline Hcl (Elavil) 10 Mg Tab 20 MG PO HS Atorvastatin (Lipitor) 10 Mg Tab 10 MG PO HS Cholesterol Management #30 Ref 0 TAB Calcium-Vitamins D & K (Calcium + D + K) 750-500-40 Mg-Unit-Mcg Tab 1 TAB PO DAILY TAB Cetirizine (Zyrtec Allergy) 10 Mg Cap 10 MG PO HS Allergies Ref 0 CAP Fluoxetine HCl (Pmdd) (Fluoxetine HCl) 20 Mg Tab 20 MG PO DAILY Insulin Aspart Inj (Novolog Inj) 1,000 Unit/10 Ml Vial 10 UNITS SQ ACHS SLIDING SCALE Blood Sugar Management #10 Ref 0 ML Insulin Glargine Inj (Lantus Inj) 1,000 Unit/10 Ml Vial 35 UNITS SQ HS Blood Sugar Management Ref 0 VIAL Insulin Human Regular Inj (Novolin R Inj) 1,000 Unit/10 Ml Vial 2-12 UNITS SQ ACHS Max dose at bedtime:( )units; sugars less than 70,(0) units; sugars 150-199,(2)unit; sugars 200-249,(4)units; sugars 250-299,(7) units; sugars 300-349,(10)units; sugars greater than 349,(12)units Blood Sugar Management #10 Ref 0 ML Irbesartan (Irbesartan) 150 Mg Tab 150 MG PO DAILY Blood Pressure Management #30 Ref 0 TAB Multiple Vitamin (Multi Vitamin) 1 Tab Tab 1 TAB PO DAILY TAB Pantoprazole (Pantoprazole) 20 Mg Tab 20 MG PO HS Reflux #30 Ref 0 TAB Verapamil SR (Isoptin SR) 240 Mg Tab 360 MG PO DAILY #30 Ref 0 TAB Sultana Cordero MD Jul 12, 2016 13:39
[2016-07-12] MEDS: ENOXAPARIN SODIUM 40 MG/0.4 ML SYRINGE SQ SCH (16:12)
--- NOTE | 2016-07-12 16:18 | HHI.PR ---
Subjective Remarks f/u for shoulder and elbow fracture. patient has no complaints but fatigue. pain is controlled. Objective Vitals Vital Signs Date Time Temp Pulse Resp B/P Pulse Ox O2 Delivery O2 Flow Rate FiO2 07/12/16 14:50 97.6 70 18 97/55 94 07/12/16 14:20 98.9 73 18 86/47 94 07/12/16 12:00 99.3 69 17 113/54 94 07/12/16 11:24 96 21 07/12/16 08:00 97.8 77 18 131/67 95 07/12/16 00:00 97.8 82 18 157/64 94 07/11/16 20:10 98.9 85 18 158/64 96 07/11/16 18:30 96 21 I/O 07/11/16 07/11/16 07/11/16 07/12/16 07/12/16 07/12/16 07:00 15:00 23:00 07:00 15:00 23:00 Intake Total 945 ml 720 ml 818 ml 718 ml 600 ml Output Total 1450 ml 800 ml 250 ml Balance -505 ml -80 ml 568 ml 718 ml 600 ml Intake Oral 240 ml 720 ml 240 ml 240 ml 600 ml IV Total 705 ml 578 ml 478 ml Output Urine Total 1450 ml 800 ml 250 ml # Voids 2 3 3 # Bowel Movements 0 0 0 0 2 Result Diagram: 07/12/16 0750 07/09/16 0700 Objective Remarks Gen NAD CV RRR. no r/m/g Abd soft NDNT Ext left arm in sling. sensation is intact. Procedures ORIF shoulder and elbow on 07/10/16. Medications and IVs Current Medications Lactated Ringer's 1,000 ml @ 30 mls/hr Q24H IV Last administered on 07/10/16t 22:03; Start 07/08/16 at 21:30 Sodium Chloride (NS 500 ml Inj) 500 ml @ 30 mls/hr [id number] IV ; Start 07/08/16 at 21:30; Stop 07/09/16 at 21:29; Status DC Insulin Human Regular (NovoLIN R INJ) See Protocol Table ... UNSCH X1 PRN SQ SEE PROTOCOL; Start 07/08/16 at 21:30; Stop 07/08/16 at 22:11; Status DC Metoprolol Tartrate (Lopressor) 25 mg UNSCH X1 PRN PO SEE LABEL COMMENTS; Start 07/08/16 at 21:30; Stop 07/09/16 at 21:29; Status DC IV Flush (NS Flush) 2 ml UNSCH PRN FLUSH FLUSH AFTER USING IV ACCESS; Start at 22:00; Stop 07/09/16 at 15:07; Status DC IV Flush (NS Flush) 2 ml BID FLUSH ; Start 07/09/16 at 09:00; Stop 07/09/16 at 15:07; Status DC Acetaminophen (Tylenol) 650 mg Q4H PRN PO Fever, Headache, Pain 1-4; Start at 22:00; Stop 07/09/16 at 15:06; Status DC Ondansetron HCl (Zofran Inj) 4 mg Q6H PRN IVP NAUSEA OR VOMITING; Start at 22:00 Bisacodyl (Dulcolax Supp) 10 mg DAILY PRN [place] CONSTIPATION; Start 07/08/16 at 22 :00 Magnesium Hydroxide (Milk Of Magnesia Liq) 30 ml Q12H PRN PO CONSTIPATION Last administered on 07/11/16 10:02; Start 07/08/16 at 22:00 Enoxaparin Sodium (Lovenox Inj) 40 mg Q24H SQ ; Start 07/08/16 at 22:00; Stop at 22:00; Status DC Naloxone HCl (Narcan Inj) 0.4 mg UNSCH PRN IV SEE LABEL COMMENTS; Start at 22:00 Acetaminophen/ Hydrocodone Bitart ([place] 5-325 Mg) 1 tab Q6H PRN PO PAIN SCALE 5 TO 10 Last administered on 07/12/16 09:15; Start 07/08/16 at 22:00 Hydromorphone HCl (Dilaudid Pf Inj) 0.5 mg Q4H PRN IV PUSH BREAKTHROUGH PAIN Last administered on 07/08/16 22:18; Start 07/08/16 at 22:00; Stop 07/09/16 at 15:06; Status DC Pneumococcal Polyvalent Vaccine (Pneumovax-23 Inj) 25 mcg ONCE ONCE IM ; Start 07/09/16 at 09:00; Stop 07/09/16 at 09:01; Status Cancel Atorvastatin Calcium (Lipitor) 10 mg DAILY PO ; Start 07/09/16 at 09:00; Stop at 09:00; Status DC Fluoxetine HCl (PROzac) 20 mg DAILY PO Last administered on 07/12/16 09:15; Start 07/09/16 at 09:00 Losartan Potassium (Cozaar) 50 mg DAILY PO Last administered on 07/12/16 09:14 ; Start 07/09/16 at 09:00 Verapamil HCl (Isoptin Sr) 360 mg DAILY PO Last administered on 07/12/16 09:15 ; Start 07/09/16 at 09:00 Atorvastatin Calcium (Lipitor) 10 mg HS PO ; Start 07/09/16 at 09:00; Stop 07/09 at 09:00; Status DC Insulin Detemir (Levemir Inj) 20 units HS SQ Last administered on 07/11/16 21: 59; Start 07/08/16 at 22:15 Dextrose (D50w (Vial) Inj) 25 ml UNSCH PRN IV PUSH HYPOGLYCEMIA-SEE COMMENTS; Start 07/08/16 at 22:15 Glucagon (Glucagon Inj) 1 mg UNSCH PRN OTHER HYPOGLYCEMIA-SEE COMMENTS; Start 07/08/16 at 22:15 Insulin Aspart (NovoLOG SUPPLEMENTAL SCALE) 1 ACHS SLIDING SCALE SQ Last administered on 07/12/16 11:00; Start 07/09/16 at 07:00 Pantoprazole Sodium (Protonix) 20 mg HS PO Last administered on 07/11/16 21:56 ; Start 07/08/16 at 22:15 Atorvastatin Calcium (Lipitor) 10 mg HS PO Last administered on 07/11/16 21:56 ; Start 07/08/16 at 22:30 Acetaminophen (Ofirmev Inj) 1,000 mg STK-MED ONCE IV ; Start 07/09/16 at 08:05; Stop 07/09/16 at 08:06; Status DC Artificial Tears (Lacrilube Opht Oint) 3.5 applic STK-MED ONCE .ROUTE ; Start at 08:05; Stop 07/09/16 at 08:06; Status DC Famotidine (Pepcid Inj) 20 mg STK-MED ONCE .ROUTE ; Start 07/09/16 at 08:05; Stop 07/09/16 at 08:06; Status DC Dexamethasone Sodium Phosphate (Decadron Inj) 4 mg STK-MED ONCE .ROUTE ; Start 07/09/16 at 08:05; Stop 07/09/16 at 08:06; Status DC Gentamicin Sulfate (Gentamicin Inj) 240 mg STK-MED ONCE .ROUTE Last administered on 07/09/16 10:00; Start 07/09/16 at 09:54; Stop 07/09/16 at 09:55 ; Status DC Pneumococcal Polyvalent Vaccine (Pneumovax-23 Inj) 25 mcg ONCE ONCE IM ; Start 07/10/16 at 10:00; Stop 07/10/16 at 10:01; Status DC Cefazolin Sodium (Ancef Inj) 2,000 mg STK-MED ONCE IV Last administered on 07/09 09:21; Start 07/09/16 at 09:21; Stop 07/09/16 at 12:20; Status DC Cefazolin Sodium 1000 mg 1,000 mg STK-MED ONCE IV Last administered on 12:07; Start 07/09/16 at 12:07; Stop 07/09/16 at 12:20; Status DC Lactated Ringer's (Lr 1000 ml Inj) 1,000 ml @ 100 mls/hr Q10H IV Last administered on 07/09/16 20:09; Start 07/09/16 at 14:50 IV Flush (NS Flush) 2 ml UNSCH PRN IVF FLUSH AFTER USING IV ACCESS; Start 07/09 at 15:00 IV Flush (NS Flush) 2 ml BID IVF Last administered on 07/09/16 20:10; Start at 21:00 Miscellaneous Information (Post-op Orders (for Pharmacy)) STAT ONCE XX ; Start 07/09/16 at 15:00; Stop 07/09/16 at 15:05; Status DC Enoxaparin Sodium 40 mg 40 mg Q24H SQ Last administered on 07/12/16 16:12; Start 07/10/16 at 14:00 Cefazolin Sodium/ Dextrose (Ancef 2 Gm Premix) 50 ml @ 100 mls/hr Q8H IV Last administered on 07/12/16 16:12; Start 07/09/16 at 16:00 Miscellaneous Information UNSCH PRN XX SEE LABEL COMMENTS; Start 07/09/16 at 15:00 Oxycodone/ Acetaminophen (Percocet 5-325 Mg) 1 tab Q4H PRN PO PAIN LESS THAN 5 ON SCALE; Start 07/09/16 at 15:00 Oxycodone/ Acetaminophen (Percocet 5-325 Mg) 2 tab Q6H PRN PO PAIN GREATER THAN/EQUAL TO 5 Last administered on 07/11/16 21:58; Start 07/09/16 at 15:00 Acetaminophen (Tylenol) 650 mg Q6H PRN PO Temperature > 101.5; Start 07/09/16 at 15:00 Multivitamins/ Minerals Therapeutic (Theragran M Tab) 1 tab DAILY PO Last administered on 07/12/16 09:15; Start 07/10/16 at 09:00 Hydromorphone HCl (Dilaudid BRICK WASHER Inj) 6 mg UNSCH IV Last administered on 03:50; Start 07/09/16 at 15:00 BRICK WASHER Dosage Infused (Pha) 1 Q8HR OTHER Last administered on 07/11/16 14:00; Start 07/09/16 at 22:00 Midazolam HCl (Versed Inj) 2 mg STK-MED ONCE .ROUTE ; Start 07/09/16 at 15:04; Stop 07/09/16 at 15:05; Status DC Fentanyl Citrate (fentaNYL INJ) 100 mcg STK-MED ONCE .ROUTE ; Start 07/09/16 at 15:04; Stop 07/09/16 at 15:05; Status DC Fentanyl Citrate (fentaNYL INJ) 250 mcg STK-MED ONCE .ROUTE ; Start 07/09/16 at 15:04; Stop 07/09/16 at 15:05; Status DC Morphine Sulfate (Morphine Inj) 8 mg STK-MED ONCE .ROUTE ; Start 07/09/16 at 15: 05; Stop 07/09/16 at 15:06; Status DC Miscellaneous Information ALL NURSING DEPARTME... UNSCH PRN XX SEE LABEL COMMENTS; Start 07/09/16 at 15:09; Stop 07/10/16 at 15:08; Status DC Sodium Chloride (NS 250 ml Inj) 250 ml @ 15 mls/hr ONCE ONCE IV ; Start at 09:15; Stop 07/13/16 at 01:54 A/P Problem List: (1) Closed 3-part fracture of proximal end of left humerus ICD Code: S42.202A Status: Acute (2) Left elbow fracture ICD Code: S42.402A Status: Acute Assessment and Plan Displaced right shoulder fracture and displaced intraarticular left elbow fracture. -s/p ORIF shoulder and elbow on 07/10/16. -being managed by Ortho -on percocet and BRICK WASHER d/jesus alberto. -ortho okay for discharge today. Anemia -transfused 1 units of PRBC on 07/12. -due to blood loss during surgery. T2DM/HTN/HLPGERD -continue home medication -SSI CKD -chronic. she is at baseline. -strict I/O -continue to monitor. -avoid nephrotoxins. -continue to monitor Cr. DVT prophylaxis -on lovenox Dispo:discharge order was placed but Jose declined due to low blood pressure. Most likely secondary to decrease PO intake and pain medication. Hold oral antihypertensive meds. Sultana Cordero MD Jul 12, 2016 16:18
[2016-07-12] MEDS: oxyCODONE/ACETAMINOPHEN 5 MG/325 MG TAB PO PRN (16:46)
[2016-07-12] MEDS: SODIUM CHLORIDE 0.9% FLUSH 5 ML FLUSH IVF SCH (21:24)
[2016-07-12] MEDS: INSULIN DETEMIR 100 UNITS/ML VIAL SQ SCH (21:24)
[2016-07-12] MEDS: PANTOPRAZOLE SOD 20 MG DELAYED RELEASE TAB PO SCH (21:26)
[2016-07-12] MEDS: ATORVASTATIN 10 MG TAB PO SCH (21:30)
[2016-07-13] VITALS: BP 147/59; PULSE 77; RESP 16; TEMP 97.7; O2SAT 94
[2016-07-13] MEDS: ceFAZolin 2 GM PREMIX 50 ML IV SCH
[2016-07-13] MEDS: oxyCODONE/ACETAMINOPHEN 5 MG/325 MG TAB PO PRN (00:02)
[2016-07-13] MEDS: PCA - TOTAL MG DILAUDID DELIVERED PER SHIFT OTHER SCH (05:19)
[2016-07-13] MEDS: INSULIN ASPART SUPPLEMENTAL SCALE SQ SCH (06:27)
[2016-07-13 07:40] VITALS: BP 124/57; PULSE 63; RESP 18; TEMP 96.2; O2SAT 92
[2016-07-13] MEDS: FLUoxetine HCL 20 MG CAP PO SCH (08:43)
[2016-07-13] MEDS: MULTIVITAMINS/MINERALS THERAPEUTIC TAB PO SCH (08:43)
[2016-07-13] MEDS: SODIUM CHLORIDE 0.9% FLUSH 5 ML FLUSH IVF SCH (08:45)
[2016-07-13 09:18] LABS: HEMATOCRIT 24.7 % (35.0-46.0); REVIEW FLAG FINAL
[2016-07-13] MEDS ORDERED: AMIT10TA6 PO (11:24)
[2016-07-13] MEDS ORDERED: ATOR10TA15 PO (11:25)
[2016-07-19] MEDS ORDERED: COMMODE 3-IN-11 MIS (16:50)
[2016-07-19] MEDS ORDERED: Shower Chair (16:50)
[2016-07-19] MEDS ORDERED: WHEEMIS3 (16:50)
[2016-07-19] MEDS ORDERED: HOSP BED1 (16:50)
[2016-07-19] MEDS ORDERED: [UNRECOGNIZED DRUG - OTHER] (16:50)
[2016-07-27] MEDS ORDERED: OXYC1TAB63 PO (14:27)
[2016-07-27] MEDS ORDERED: AMIT10TA6 PO (14:27)
[2016-07-27] MEDS ORDERED: NYST15T TOPICAL (14:27)
[2016-07-27] MEDS ORDERED: FLUO1TAB17 PO (14:27)
[2016-07-27] MEDS ORDERED: DOCU1CAP39 PO (14:27)
[2016-07-27] MEDS ORDERED: OYST250T4 PO (14:27)
[2016-07-27] MEDS ORDERED: PANT20TA2 PO (14:27)
[2016-07-27] MEDS ORDERED: COZA50TA PO (14:27)
[2016-07-27] MEDS ORDERED: LIPI10TA PO (14:27)
[2016-07-27] MEDS ORDERED: ZYRT10CA PO (14:27)
[2016-07-27] MEDS ORDERED: MULT-135 PO (14:27)
[2016-07-27] MEDS ORDERED: NOVOLOGP2 SQ (14:27)
[2016-07-27] MEDS ORDERED: CALA240T PO (14:27)
[2016-07-27] MEDS ORDERED: LEVEMIR SQ (14:27)
== END 2016-07-13 11:09 | DRG 493 ==
LOC: N06A 21:08
PROVIDERS: ADMIT Family Medicine; ATTEND Family Medicine
PROC: 0RSM04Z Reposition Left Elbow Joint with Internal Fixation Device, Open Approach (ICD-10-PCS; principal; 2016-07-09 08:35)
PROC: 0PSF04Z Reposition Right Humeral Shaft with Internal Fixation Device, Open Approach (ICD-10-PCS; 2016-07-09 08:35)
PROC: 30233N1 Transfusion of Nonautologous Red Blood Cells into Peripheral Vein, Percutaneous Approach (ICD-10-PCS; 2016-07-12)
DX: S42.492A Other displaced fracture of lower end of left humerus, initial encounter for closed fracture (principal); S42.351A Displaced comminuted fracture of shaft of humerus, right arm, initial encounter for closed fracture; E11.22 Type 2 diabetes mellitus with diabetic chronic kidney disease; D64.9 Anemia, unspecified; N18.9 Chronic kidney disease, unspecified; W01.0XXA Fall on same level from slipping, tripping and stumbling without subsequent striking against object, initial encounter; Z90.710 Acquired absence of both cervix and uterus; Z85.43 Personal history of malignant neoplasm of ovary; Z79.4 Long term (current) use of insulin
CPT/HCPCS: 36430; 71010; 73030; 73080; 76000; 80048; 82948; 85014; 85018; 85025; 85610; 85730; 86850; 86900; 86901; 86920; 93005; 94150; C1713; J0131; J0360; J0690; J1100; J1170; J1580; J1650; J1815; J2250; J2270; J2370; J2405; J3010; J7050; J7120; P9016

== ENCOUNTER → 2016-11-10 | Outpatient (CLI) | payer OTHER ==
[~2016-11-10] MED LIST changes: -AMIT10TA13 PO; +AMIT10TA6 PO; -ATOR10 PO; +CALA240T PO; -CALCCHW25 PO; -CIPR500T4 PO; +COMMODE 3-IN-11 MIS; +COZA50TA PO; +DOCU1CAP39 PO; +FLUO1TAB17 PO; -FLUO20TA20 PO; +HOSP BED1; -HYDR-3533 PO; -IRBE150T49 PO; -LANTUS2P SC; +LEVEMIR SQ; +LIPI10TA PO; +MULT-135 PO; +NYST15T TOPICAL; +OXYC1TAB63 PO; +OYST250T4 PO; -PANT20TA PO; +PANT20TA2 PO; +Shower Chair; -TAB-TAB PO; -VERA360C PO; +WHEEMIS3; +ZYRT10CA PO; -ZYRT10TA12 PO; +[UNRECOGNIZED DRUG - OTHER]
--- NOTE | 2016-11-10 11:29 | EKG ---
Date Performed: 11/10/2016 Time Performed: 10:01:34 PTAGE: 66 years EKG: Sinus rhythm with PVC(s). Anterolateral ST-T changes are nonspecific Borderline ECG COMPARED TO PRIOR ELECTROCARD IOGRAM, PVCs are present. PREVIOUS TRACING : 07/09/2016 05.35 DOCTOR: Saturnino Callahan Interpretating Date/Time 11/10/2016 11:28:42
== END ==
LOC: HCAV 09:33
PROVIDERS: ATTEND Orthopaedic Surgery Sports Medicine
DX: Z01.810 Encounter for preprocedural cardiovascular examination (principal)
CPT/HCPCS: 93005

== ENCOUNTER → 2017-09-13 | Outpatient (CLI) | payer BC, MEDICARE ==
--- NOTE | 2017-09-13 15:28 | EKG ---
Date Performed: 09/13/2017 Time Performed: 09:32:04 PTAGE: 67 years EKG: Sinus rhythm . Right bundle branch block Abnormal ECG PREVIOUS TRACING : 11/10/2016 10.01 Since the prior tracing, the right bundle branch block is n ew. The lateral ST segment changes have improved, but this is nonspecific in the setting of the new r ight bundle branch block. DOCTOR: Celine Khalil Interpretating Date/Time 09/13/2017 15:27:59
== END ==
LOC: HCAV 09:11
PROVIDERS: ATTEND Orthopaedic Surgery Sports Medicine
DX: S42.402D Unspecified fracture of lower end of left humerus, subsequent encounter for fracture with routine healing (principal); X58.XXXD Exposure to other specified factors, subsequent encounter; R94.31 Abnormal electrocardiogram [ECG] [EKG]
CPT/HCPCS: 93005

== ENCOUNTER 2018-02-21 10:30 | Inpatient (IN) ==
[2018-02-21] MEDS ORDERED: Chlorhexidine Gluconate 2% 1 Pack (2 Cloths) TOPICAL ONE (13:30)
[2018-02-21] MEDS ORDERED: Metoprolol Tartrate 25 MG Tablet PO ONE (13:30)
[2018-02-21] MEDS ORDERED: Sodium Chlor 0.9% Inj 500 ML IV.CONT ONE (13:30)
[2018-02-21] MEDS ORDERED: Clindamycin 900 mg/NS Premix 900 MG/50 ML PIGGYBACK IV.SIG SCH ×2 (13:30→23:15)
[2018-02-21] MEDS ORDERED: Lidocaine PF 1% Inj 5 ML Syringe OTHER ONE (13:37)
[2018-02-21] MEDS ORDERED: fentaNYL Citrate Inj 250 MCG/5 ML Ampul ONE (17:28)
[2018-02-21] MEDS ORDERED: Tranexamic Acid Inj 1,000 MG/10 ML Ampul ONE (18:16)
[2018-02-21] MEDS ORDERED: Tranexamic Acid Inj 1,000 MG in Sodium Chlor 0.9% Inj 100 ML IV.SIG SCH ×4 (20:08→21:06)
[2018-02-21] MEDS ORDERED: Bupivacaine PF 0.5% Inj 30 ML Vial ONE (22:34)
--- NOTE | 2018-02-21 22:43 | XR ---
EXAM DATE: 02/21/2018 12:00 AM EDT AGE/SEX: 67 years / Female INDICATIONS: Elbow replacement done in the operating room. CLINICAL DATA: This is the patient's initial encounter. Patient reports that signs and symptoms have been present for 1 day and indicates a pain score of Nonresponsive. MEDICAL/SURGICAL HISTORY: . Hypertension. Diabetes. . Hysterectomy. Cholecystectomy. left elb ow repair. pins wrist, gastric sleeve, ligament repair left ankle. COMPARISON: [facility], [facility], ELBOW LT, 01/22/2018. . FINDINGS: There is no bone prosthesis in place. Rods are seen to extend into the distal humerus and the proxima l ulna. This resection of the proximal radius. The hardware appears well placed. CONCLUSION: Good placement of an elbow prosthesis. Electronically signed by: Claude Strauss MD 02/21/2018 10:41 PM EDT
[2018-02-21] MEDS ORDERED: Morphine Inj 4 MG/ML Vial IV.PUSH PRN (22:51)
[2018-02-21] MEDS ORDERED: *Ondansetron Inj 4 MG/2 ML Vial PERIprocedural Use ONLY ONE (22:52)
[2018-02-21] MEDS ORDERED: fentaNYL Citrate Inj 100 MCG/2 ML Ampul ONE (22:56)
[2018-02-21] MEDS ORDERED: Dextrose 50% in Water 50 ML Vial IV.PUSH PRN (23:02)
--- NOTE | 2018-02-21 23:06 | P.BOP ---
- Preoperative Diagnosis (1) Traumatic arthritis elbow Date of procedure: 02/21/18 Procedure: 1. Left total elbow arthroplasty 2. Left elbow removal of hardware 3. Left ulnar nerve transposition Anesthesia: GETA Surgeon: Sanjay Kerns MD Estimated blood loss (mL): 100 Tourniquet time (min): 118 Condition: stable Disposition: floor
[2018-02-21] MEDS ORDERED: *morphine SULFATE 4 MG/ML PERIprocedure ONLY ONE (23:16)
--- NOTE | 2018-02-21 23:24 | P.HPIM ---
History of Present Illness Service: [facility] Primary Care Physician: Fran Head MD Chief Complaint: Left elbow pain History of Present Illness: 67 year-old female with a history of diabetes, fibromyalgia hyperlipidemia, hypertension, ovarian cancer who was brought in for an elective elbow arthroplasty completed by Dr. Kerns. Patient states for the last year she has been dealing with left elbow pain and has 2 other surgeries with hardware removal, so she underwent elective reconstruction today. Dr. Kerns has kindly asked [facility] to admit the patient due to her extensive list of comorbidities and to monitor overnight. She states the pain is currently controlled, denies any chest pain, shortness of breath, fever or chills. Inpatient Certification: I certify that the inpatient services were ordered in accordance with Medicare regulations governing the order. This includes certification that hospital inpatient services are reasonable and necessary and in the case of services not specified as inpatient-only under 42 CFR 419.22(n), that they are appropriately provided as inpatient services in accordance to with the 2-midnight benchmark under 43 CFR 412.3(e) Estimated Total Length of Stay (Days): 2 Plans for Post Hospital Care: Home Review of Systems All other systems reviewed negative except as stated in HPI [facility] - History History Provided By: Patient - Medical History Medical History: Medical History (Last Reviewed 02/22/18 @ 00:53 by NEGRO Mcghee) Diabetes Fibromyalgia High cholesterol Hypertension Ovarian cancer Shoulder fracture, right - Surgical History Surgical History: Surgical History (Last Reviewed 02/22/18 @ 00:53 by NEGRO Mcghee) H/O elbow surgery H/O fracture of wrist H/O: hysterectomy History of sleeve gastrectomy Hx of cholecystectomy - Family History Family History: Family History (Last Updated 02/22/18 @ 00:54 by NEGRO Mcghee) Mother Lymphoma Father CHF (congestive heart failure) - Social History I have reviewed the patient's Social History: Yes - Tobacco History Second Hand Smoke Exposure: No Smoking Status: Never smoker - Alcohol History How Often Do You Have a Drink Containing Alcohol: Monthly or less - Substance Use History Substance History: No History of Abuse - Travel History Recent Travel in the [place] Within the Last 8 Weeks: No Recent Travel Out of the Country Within the Last 8 Weeks: No Medications and Allergies Active Medications: Active Medications Atorvastatin Calcium (Lipitor) 10 mg PO DAILY ILDEFONSO Cetirizine HCl (Zyrtec) 10 mg PO HS ILDEFONSO Cyclobenzaprine HCl (Flexeril) 10 mg PO HS ILDEFONSO Fluoxetine HCl (Prozac) 20 mg PO DAILY ILDEFON[facility] Lactated Ringer's (Lr 1000 Ml Inj) 1,000 mls @ 30 mls/hr IV.CONT .Q24H ONE Stop: 02/22/18 13:29 Last Admin: 02/21/18 14:15 Dose: 30 mls/hr Sodium Chloride (Ns Inj) 500 mls @ 30 mls/hr IV.CONT .[id number] ONE Stop: 02/22/18 06:09 Last Admin: 02/21/18 14:33 Dose: Not Given Clindamycin/Sodium Chloride (Cleocin 900 Mg/Ns Premix) 900 mg in 50 mls @ 100 mls/hr IV.SIG [employer] ILDEFONSO Stop: 02/25/18 13:29 Last Infusion: 02/21/18 20:12 Dose: Infused Tranexamic Acid 1,000 mg/ (Sodium Chloride) 110 mls @ 200 mls/hr IV.SIG ONCE ILDEFONSO Tranexamic Acid 1,000 mg/ (Sodium Chloride) 110 mls @ 200 mls/hr IV.SIG ONCE ILDEFONSO Last Infusion: 02/21/18 20:12 Dose: Infused Tranexamic Acid 1,000 mg/ (Sodium Chloride) 110 mls @ 200 mls/hr IV.SIG ONCE ILDEFONSO Last Infusion: 02/21/18 21:06 Dose: 200 mls/hr Miscellaneous Information ([facility] [place] Nursing Information) 1 each OTHER UNSCH PRN PRN Reason: SEE LABEL COMMENTS Stop: 02/22/18 23:00 Morphine Sulfate (*Morphine Inj Periprocedure Only) 4 mg IV.PUSH Q3HR PRN PRN Reason: Acute Pain Non-Formulary Medication (Verapamil [Verapamil]) 360 mg PO DAILY [facility] Non-Formulary Medication (Irbesartan [Irbesartan]) 150 mg PO DAILY [facility] Allergies Allergy/AdvReac Type Severity Reaction Status Date / Time penicillin G Allergy Intermediate Hives Verified 02/21/18 14:13 Sulfa (Sulfonamide Allergy Intermediate Hives Verified 02/21/18 14:13 Antibiotics) Home Medications Medication Instructions Recorded Confirmed Type atorvastatin 10 mg PO DAILY 01/22/18 02/21/18 History cyclobenzaprine 10 mg PO HS 01/22/18 02/21/18 History fluoxetine 20 mg PO DAILY 01/22/18 02/21/18 History insulin aspart U-100 [Novolog 10 unit SUB-Q BID 01/22/18 02/21/18 History Flexpen U-100 Insulin] insulin glargine [Lantus U-100 32 unit SUB-Q HS 01/22/18 02/21/18 History Insulin] irbesartan 150 mg PO DAILY 01/22/18 02/21/18 History verapamil 360 mg PO DAILY 01/22/18 02/21/18 History cetirizine 10 mg PO HS 02/20/18 02/21/18 History Exam Vital signs: Vital Signs 02/21/18 14:00 Temperature 98.8 F Pulse Rate 65 Respiratory Rate 20 Blood Pressure 145/71 H Pulse Oximetry 98 Intake & Output 02/21/18 02/21/18 02/22/18 06:59 18:59 06:59 Intake Total 1860 / 1860 Output Total 100 / 100 Balance 1760 / 1760 Weight 132.8 kg Intake: IV 160 / 160 Cleocin 900 mg/NS Premix 900 mg 50 / 50 In 50 ml @ 100 mls/hr IV.SIG [employer] ILDEFONSO Rx#:[id number] Cyklokapron Inj 1,000 MG In NS 110 / 110 Inj 100 ML @ 200 mls/hr IV.SIG ONCE ILDEFONSO Rx#:[id number] Anesthesia Amount 1700 / 1700 Output: Estimated Blood Loss 100 / 100 Other: Weight On Admission 132.8 kg Narrative: GENERAL: This is a well-nourished, well-developed patient, in no apparent distress. SKIN: Warm, dry, intact, no ecchymosis or open lesions EYES: Pupils equal round and reactive, no scleral edema or drainage CARDIOVASCULAR: Regular rate and rhythm without murmurs, gallops, or rubs. RESPIRATORY: Clear to auscultation. Breath sounds equal bilaterally. No wheezes , rales, or rhonchi. GASTROINTESTINAL: Abdomen soft, non-tender, nondistended. Normal active bowel sounds MUSCULOSKELETAL: Extremities without clubbing, cyanosis, or edema. NEURO: Alert & Oriented x4 to person, place, time, situation. Limited ROM with left upper extremity Results - Imaging Impressions Elbow X-Ray 02/21/18 00:00 CONCLUSION: Good placement of an elbow prosthesis. Caprini VTE Risk Assessment Caprini VTE Risk Assessment: No/Low Risk (score <= 1) Caprini Risk Assessment Model: Point Value = 1 Point Value = 2 Point Value = 3 Point Value = 5 Age 41-60 Minor surgery BMI > 25 kg/m2 Swollen legs Varicose veins or History of unexplained or recurrent spontaneous Oral contraceptives or hormone replacement Sepsis (< 1 month) Serious lung disease, including pneumonia (< 1 month) Abnormal pulmonary function Acute myocardial infarction Congestive heart failure (< 1 month) History of inflammatory bowel disease Medical patient at bed rest Age 61-74 Arthroscopic surgery Major open surgery (> 45 min) Laparoscopic surgery (> 45 min) Malignancy Confined to bed (> 72 hours) Immobilizing plaster cast Central venous access Age >= 75 History of VTE Family history of VTE Factor V Leiden Prothrombin [id number] Lupus anticoagulant Anticardiolipin antibodies Elevated serum homocysteine Heparin-induced thrombocytopenia Other congenital or acquired thrombophilia Stroke (< 1 month) Elective arthroplasty Hip, pelvis, or leg fracture Acute spinal cord injury (< 1 month) Prophylaxis Regimen: Total Risk Factor Score Risk Level Prophylaxis Regimen 0-1 Low Early ambulation 2 Moderate Order ONE of the following: *Sequential Compression Device (SCD) *Heparin 5000 units SQ BID 3-4 Higher Order ONE of the following medications: *Heparin 5000 units SQ TID *Enoxaparin/Lovenox 40 mg SQ daily (WT < 150 kg, CrCl > 30 mL/min) *Enoxaparin/Lovenox 30 mg SQ daily (WT < 150 kg, CrCl > 10-29 mL/min) *Enoxaparin/Lovenox 30 mg SQ BID (WT < 150 kg, CrCl > 30 mL/min) AND/OR *Sequential Compression Device (SCD) 5 or more Highest Order ONE of the following medications: *Heparin 5000 units SQ TID (Preferred with Epidurals) *Enoxaparin/Lovenox 40 mg SQ daily (WT < 150 kg, CrCl > 30 mL/min) *Enoxaparin/Lovenox 30 mg SQ daily (WT < 150 kg, CrCl > 10-29 mL/min) *Enoxaparin/Lovenox 30 mg SQ BID (WT < 150 kg, CrCl > 30 mL/min) AND *Sequential Compression Device (SCD) Assessment and Plan - Plan 67 year-old female with a history of diabetes, fibromyalgia hyperlipidemia, depression, hypertension, ovarian cancer who was brought in for an elective elbow arthroplasty completed by Dr. Kerns. Elbow arthroplasty, left -Orthopedics following -Pain management with IV morphine -IV antibiotics clindamycin Diabetes, chronic -Accu-Cheks with sliding scale insulin -Resume home medications Levemir -Diabetic diet Hypertension, chronic -Resume home medications verapamil and Cozaar, monitor vitals Fibromyalgia, chronic -Resume home Flexeril DVT prophylaxis: SCDs Discussed Condition With: Patient and RN H&P: Quality - VTE Deep Vein Thrombosis/Pulmonary Embolism Present on Admission: No
--- NOTE | 2018-02-21 23:43 | XR ---
EXAM DATE: 02/21/2018 12:00 AM EDT AGE/SEX: 67 years / Female INDICATIONS: Post op. CLINICAL DATA: This is the patient's initial encounter. Patient reports that signs and symptoms have been present for 1 day and indicates a pain score of 0/10. MEDICAL/SURGICAL HISTORY: . Hypertension. Diabetes. . Hysterectomy. Cholecystectomy. Left elbow repair. Pins wrist, gastric sleeve, ligament repair left ankle. . Hysterectomy. Cholecystectomy. Le ft elbow repair. Pins wrist, gastric sleeve, ligament repair left ankle. COMPARISON: . FINDINGS: Postoperative left elbow joint replacement. Skin annalise posteriorly. Bones are osteopenic. There is air in the soft tissues. CONCLUSION: Postoperative left elbow joint replacement. No complications identified. Electronically signed by: Marquez Castillo MD 02/21/2018 11:42 PM EDT
[2018-02-21] MEDS ORDERED: *Promethazine Inj 25 MG/ML Vial PERIprocedural use ONLY ONE (23:47)
[2018-02-22] MEDS ORDERED: Dextrose 50% in Water 50 ML Vial IV.PUSH PRN (00:09)
[2018-02-22] MEDS: Clindamycin 900 mg/NS Premix 900 MG/50 ML PIGGYBACK IV.SIG SCH ×3 (00:25→17:32)
[2018-02-22 05:16] LABS: Calcium 8.6 mg/dL (8.5-10.1); Carbon Dioxide 21.6 meq/L (21.0-32.0); Potassium 4.8 meq/L (3.5-5.1)
[2018-02-22 05:17] LABS: Hematocrit 34.7 % (35.0-46.0); Hemoglobin 11.2 gm/dL (11.6-15.3)
[2018-02-22] MEDS ORDERED: Insulin NovoLIN Regular Correctional Sugar Inj SQ SCH (08:00)
[2018-02-22] MEDS: Insulin NovoLIN Regular Correctional Sugar Inj SQ SCH ×4 (08:02→17:40)
[2018-02-22] MEDS ORDERED: Naloxone Inj 0.4 MG/ML Vial IV.PUSH PRN (08:28)
[2018-02-22] MEDS ORDERED: Acetaminophen 325 MG Tablet PO PRN (08:28)
[2018-02-22] MEDS ORDERED: Bisacodyl 10 MG Supp RECTAL PRN (08:31)
[2018-02-22] MEDS ORDERED: Senna/Docusate Sodium 8.6/50 MG Tablet PO SCH (09:00)
[2018-02-22] MEDS ORDERED: FLUoxetine 20 MG Capsule PO SCH (09:00)
--- NOTE | 2018-02-22 10:27 | P.PNIM ---
Subjective Interval history: Pain control. No other concerns at this time. Would like to go home Physical Exam Vital signs: Vital Signs 02/21/18 14:00 02/21/18 22:47 02/21/18 23:00 Temperature 98.8 F 98.2 F 98.4 F Pulse Rate 65 76 63 Respiratory Rate 20 14 14 Blood Pressure 145/71 H 160/71 H 160/69 H Pulse Oximetry 98 100 100 02/21/18 23:15 02/21/18 23:30 02/21/18 23:45 Temperature 98.4 F 98.4 F 98.4 F Pulse Rate 68 68 68 Respiratory Rate 14 14 14 Blood Pressure 160/67 H 170/71 H 167/71 H Pulse Oximetry 100 100 100 02/22/18 00:00 02/22/18 04:00 02/22/18 08:00 Temperature 97.4 F L 97.6 F 97.6 F Pulse Rate 72 82 78 Respiratory Rate 18 18 16 Blood Pressure 161/70 H 170/70 H 170/70 H Pulse Oximetry 93 L 97 98 Intake & Output 02/21/18 02/22/18 02/22/18 18:59 06:59 18:59 Intake Total 3610 / 3610 Output Total 500 / 500 Balance 3110 / 3110 Weight 132.8 kg 132.8 kg Intake: IV 210 / 210 Cleocin 900 mg/NS Premix 900 mg 100 / 100 In 50 ml @ 100 mls/hr IV.SIG Q8H ILDEFONSO Rx#:[id number] Cyklokapron Inj 1,000 MG In NS 110 / 110 Inj 100 ML @ 200 mls/hr IV.SIG ONCE ILDEFONSO Rx#:[id number] Anesthesia Amount 3400 / 3400 Output: Urine 300 / 300 Estimated Blood Loss 200 / 200 Other: Date of Last Bowel Movement 02/20/18 Weight On Admission 132.8 kg Narrative: GENERAL: This is a well-nourished, well-developed patient, in no apparent distress. CARDIOVASCULAR: Regular rate and rhythm RESPIRATORY: Clear to auscultation. Breath sounds equal bilaterally. No wheezes , rales, or rhonchi. GASTROINTESTINAL: Abdomen soft, non-tender, nondistended. Normal active bowel sounds MUSCULOSKELETAL: Left upper arm with bandage clean dry and intact NEURO: Alert & Oriented x4 to person, place, time, situation. Moves all ext x4 Results - Labs CBC & Chem 7: 02/22/18 04:16 02/22/18 03:42 Laboratory Results - last 24 hr 02/21/18 02/21/18 02/21/18 14:13 14:15 23:24 Hgb Hct Sodium Potassium Chloride Carbon Dioxide Anion Gap BUN Creatinine Estimated GFR POC Glucose 93 147 H Random Glucose Calcium Blood Type O Positive Antibody Screen Negative 02/22/18 02/22/18 02/22/18 00:23 03:42 04:16 Hgb 11.2 L Hct 34.7 L Sodium 141 Potassium 4.8 Chloride 110 H Carbon Dioxide 21.6 Anion Gap 9 BUN 27 H Creatinine 1.51 H Estimated GFR 35 L POC Glucose 157 H Random Glucose 209 H Calcium 8.6 Blood Type Antibody Screen 02/22/18 07:58 Hgb Hct Sodium Potassium Chloride Carbon Dioxide Anion Gap BUN Creatinine Estimated GFR POC Glucose 193 H Random Glucose Calcium Blood Type Antibody Screen - Imaging Impressions Elbow X-Ray 02/21/18 00:00 CONCLUSION: Good placement of an elbow prosthesis. Elbow X-Ray 02/21/18 00:00 CONCLUSION: Postoperative left elbow joint replacement. No complications identified. Assessment and Plan - Plan 67 year-old female with a history of diabetes, fibromyalgia hyperlipidemia, depression, hypertension, ovarian cancer who was brought in for an elective elbow arthroplasty completed by Dr. Kerns. Elbow arthroplasty, left -Orthopedics following Continue postoperative care, pain control, physical therapy -Pain management with IV morphine, will add [place] to regimen and bowel regimen. Diabetes mellitus type II, insulin-dependent with complications of chronic kidney disease stage III, controlled -Accu-Cheks with sliding scale insulin -Resume home medications Levemir -Diabetic diet Hypertension, chronic -Resume home medications verapamil and Cozaar, monitor vitals Fibromyalgia, chronic -Resume home Flexeril Chronic kidney disease stage III likely due to diabetes mellitus type 2avoid nephrotoxins. DVT prophylaxis: SCDs Discharge patient to home when cleared by Dr. Dawkins's orthopedic surgery Condition on discharge: Improved Diabetic diet diet as tolerated Partial weightbearing left upper extremities activity Rx written: [place] Follow-up with primary care physician Follow-up with Dr. Kerns [employer] Prescription Drug Monitoring Database has been queried and verified prior to prescribing the controlled subsection. Patient is having significant pain caused by elbow arthroplasty which will last more than 3 days. Trial of alternative treatment options other than prescribed opioids has not helped. I believe that it is medically necessary to treat the patients pain because it is affecting patients ability to perform activities of daily living.
[2018-02-22 16:46] VITALS: BP 132/58; PULSE 72; RESP 16; TEMP 97.9; O2SAT 88
[2018-02-22] MEDS ORDERED: Insulin Detemir Inj 1,000 UNIT/10 ML Vial SQ SCH (21:00)
--- NOTE | 2018-02-24 21:55 | MP ---
cc: Gregor SORIA DATE OF OPERATION: 02/21/2018 PREOPERATIVE DIAGNOSES: 1. History of left distal humerus intraarticular fracture. 2. 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 3. Left elbow posttraumatic arthritis. 4. 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 POSTOPERATIVE DIAGNOSES: 1. History of left distal humerus intraarticular fracture. 2. 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 3. Left elbow posttraumatic arthritis. 4. 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 OPERATION PERFORMED: 1. Left distal humerus removal of hardware. 2. Left ulnar nerve decompression with anterior subcutaneous transposition. SURGEON: Gregor Kerns MD ANESTHESIA: General with regional augment. ESTIMATED BLOOD LOSS: 100 mL. FLUIDS: Per anesthesia record. SPECIMENS: None. IMPLANTS REMOVED: Synthes headless compression screws. IMPLANTS PLACED: Tornier latitude total elbow system. 1. Left humeral stem, size medium, 77 mm length. 2. Left ulnar stem, size medium, long, length 75 mm. 3. [place] Simplex treatment. 4. Vancomycin powder intra-articular into the soft tissues, 1 gram. INDICATIONS FOR PROCEDURE: Please see history and physical for complete details and summary. Ms. Nguyen is a 67-year-old female who sustained a complex, intraarticular distal humerus fracture in June 2016. She underwent primary reduction internal fixation and a revision open reduction and internal fixation in November 2016. Despite the interventions, she had progressive lateral subluxation of the radiocapitellar and ulnohumeral joints with eventual dislocation of the elbow. In July 2017, she underwent removal of hardware and anterior capsulectomy in the attempt to improve her range of motion. Despite this intervention, she continued to have significant pain and subjective instability. She was referred to me by my partner. X-ray evaluation was significant for retained hardware within the distal humerus articular block. She had significant cubitus valgus on examination secondary to the dislocation with ulnar nerve symptoms. We discussed that her x-rays were significant for bony resorption of the lateral condyle resulting in loss of the lateral column support with lateral subluxation of the radius and ulna. We discussed the available treatment options. Given the loss of articular congruity and bony resorption, she was not a candidate for ligamentous reconstruction. We discussed the possibility of total elbow arthroplasty. Prior to proceeding with total elbow arthroplasty, we did discuss the concern for possible infection. This was ruled out with inflammatory markers as well as with an ultrasound-guided elbow aspiration. Cultures were negative x14 days. The relevant risks, benefits, and expected postoperative course of total elbow arthroplasty were reviewed. Risks include, but are not limited to damage to surrounding blood vessels and nerves, infection, wound healing issues, hardware failure, hardware loosening, continued pain, loss of motion, breakdown of the bearings, and need for future surgery. Specifically, we discussed that elbow arthroplasty requires weight lifting restrictions of 5 pounds, lifetime. We discussed that this would certainly impact her activities of daily living; however, this is unfortunately the tradeoff given her presentation. Ultimately, she elected to proceed with surgical intervention. All questions and concerns were addressed preoperatively. She willingly signed consent for the procedure as per above. DESCRIPTION OF PROCEDURE: The patient was identified in the preoperative holding area and the operative site was marked. They were then brought back to the operating room under the care of the anesthesiology team, positioned supine on the OR table. All bony prominences were padded. A per protocol timeout was performed during which the patient's side, site and nature of the procedure was confirmed. General anesthesia was then induced without untoward effect and endotracheal intubation was performed. The patient was then positioned in a right lateral decubitus position with the left side facing the ceiling. All bony prominences were padded. She was positioned in a beanbag lateral positioner with a lateral arm elliott. The left upper extremity was then prepped and draped in the routine strict and sterile fashion using triple prep solution and occlusive draping. A sterile pneumatic tourniquet was then applied. The upper extremity was exsanguinated and the pneumatic tourniquet was then inflated to 250 mmHg. The previously utilized posterior incision was entered. This was a curvilinear incision that wrapped medially around the olecranon. Sharp dissection was carried through skin and continued sharp dissection was utilized to raise full-thickness skin flaps both radially and ulnarly. The ulnar nerve was then identified along the medial aspect of the wound and a neurolysis of the nerve was performed throughout the length. Fascia overlying the nerve was incised, just proximal to the medial epicondyle. The ulnar nerve was next decompressed from the level of the medial epicondyle to a point 8 cm proximal dividing all overlying fascial elements. The medial intermuscular septum was next identified. It was carefully dissected around its deep and superficial aspects. It was excised off its origin at the medial epicondyle. Dissection was then continued distally along the course of the ulnar nerve through the cubital tunnel proper and between the two heads of the FCU. The superficial fascia overlying the flexor carpi ulnaris was sharply divided. The cubital tunnel retinaculum was next sharply divided. The two heads of the FCU were then bluntly spread and the deep fascia overlying the nerve was incised to a level approximately 8 cm distal to the medial epicondyle. A vessel loop was placed around the nerve. The ulnar nerve was then carefully dissected out of its bed. Longitudinal vessels running with the nerve were carefully protected to the point with a branch near the medial epicondyle. At this point, they were cauterized. The nerve was then continued to be dissected through the two heads of the FCU. The first branch to the FCU was identified and carefully protected. This was mobilized so that an anterior transposition could be obtained. The nerve was then placed in a subcutaneous position. The point where it crossed the fascia of the FCU was identified and a triangular window of fascia was excised so that the nerve would be resting on the muscle at this level. This completed the ulnar nerve anterior subcutaneous transposition. Attention was then turned back to the elbow. A sharp incision was made through the medial border of the triceps extending distally to the ulnar insertion of the triceps tendon on the olecranon. The triceps tendon was sharply elevated off the olecranon with multiple #15 blade scalpels, working from ulnar to radial maintaining as much tendon substance as possible. This permitted a triceps reflecting approach to the elbow. Care was taken to ensure that a full-thickness layer of periosteum, fascia, and triceps insertion was elevated from a medial to lateral direction until the entirety of the olecranon had been exposed. At this point in time, the lateral ulnar collateral ligament was elevated off of its insertion onto the proximal ulna. This exposed the posterior border of the humerus as well as the olecranon and radial head. Evaluation was then undertaken of the joint surfaces. There was complete erosion of the lateral column of the distal humerus such that the metaphyseal block was largely degenerative. There were no articular surface remaining along the trochlea. There was no evidence of remaining lateral epicondyle. The medial epicondyle remained intact. There is no evidence of remnant radial head and the proximal radius was shortened at the level of the radial neck with an intact proximal radial ulnar joint with maintained pronation/supination. There was evidence of significant flexion contracture of approximately 30 degrees of the elbow. This impeded the ability to reduce the dislocated elbow joint and as such, the anterior capsule of the elbow was carefully recessed off of the anterior, distal humerus with use of a Peterson elevator. The anterior capsule was fibrotic secondary to recurrent surgery and scar tissue. There was no evidence of purulence or nonviable tissue within the joint. There was no evidence of overt infection. Next, a subperiosteal elevation of the common flexor and remaining common extensor origin was then elevated from the distal humerus. Next, the sizing guide options were introduced and a size medium total elbow components were selected. Attention was first turned to the distal humerus. The olecranon fossa was opened with a bur opening the humeral canal. We next turned our attention to the patient's distal humerus. The distal humerus articular block was then exposed with use of bur. There was remaining headless compression screws within this articular block and they were carefully removed with use of a bur in order to prevent fracture to the medial or lateral column. This completed the removal of deep hardware of the elbow. With all of the hardware removed, attention was turned to the olecranon fossa and a bur was used to open the humeral canal. We next carefully reamed the humeral canal and then broached to a size medium. The broach was then left in place and a cutting jig was applied to the distal humerus. Only minimal bone cuts were required to be made on the medial side as well as transversely proximally. These cuts were then completed with use of a bur to round out the corners so as to prevent a stress riser. A medium trial prosthesis was now placed. This was removed, further contoured with use of the bur and then replaced. It was well positioned within the distal humerus. Attention was then turned to the ulna. The size medium cutting guide was then placed in the sigmoid notch and the clamp was secured to the posterior olecranon. The proximal olecranon was then resected with the use of a whole saw, size small. We next opened the ulnar canal with use of a bur. The opening reamer was then introduced into the canal and a guidewire was then placed within the canal. We next reamed to a size medium component. We next broached proximally up to a size medium component. Care was noted to maintain a planar level of the broach. Additionally, the proximal 50% of the olecranon tip was excised to permit this trajectory. Next, the ulnar trial was placed, which seated well. Attention was then turned to the radial head. The decision was made to provide additional lateral column support and to place a radial head component. The cutting guide was assembled on the proximal ulna and a revision cut of the radial neck was then performed. The trial components were then assembled, which demonstrated excellent congruity with full extension to full flexion. The implants were then removed. The tourniquet was then released given 2 hours of working time. The wounds were then copiously irrigated with normal saline solution. A cement restrictor was placed in the ulna as well as in the humerus. The tourniquet was then reinflated following 15 minutes of the tourniquet being down. The wound was then thoroughly irrigated again and fully dried. [employer] Simplex cement was utilized. We first placed this in the ulnar canal and then placed the ulnar prosthesis. It was fully seated and excess cement was removed. We then placed cement in the humeral canal, placed the humeral component, and then removed excess cement. Gentle pressure was then placed to maintain these components in position while the cement hardened. Additionally, the radial head component was positioned within the radial canal using cement. Once the cement had fully cured, the components were linked. A trialing of the final components was then undertaken. The elbow was brought from full extension to full flexion. During the terminal 20 degrees of extension, there was evidence of lateral dislocation of the radial head component from the distal humerus. This then reduced on elbow flexion. During repeated attempts at passive terminal extension, this dislocation reoccurred. As such, the decision was made to unlink the components and remove the radial head given the anticipation that this would be an ongoing problem for the patient should the radial head be retained. Next, the wounds were then again thoroughly irrigated with normal saline solution. A bone block was then placed underneath the anterior flange of the humeral component. A gram of vancomycin powder was now placed in the soft tissues within the joint. Attention was then turned to wound closure. Preparation was then undertaken of the olecranon for reattachment of the triceps tendon. A 0.062-inch Jayce wire was drilled at the tip of the olecranon passing in an oblique fashion out the posterior cortex of the proximal ulna. This was performed in a second time such that the 2 passes were crisscrossing. A Hewson suture needle was then inserted into one of its holes. A #2 FiberWire was then run in a locking Krackow type fashion from distal and proximally through the radial border of the triceps tendon and back down centrally. A second #2 FiberWire was placed ulnar to this in a similar fashion. The exiting limbs of the suture were made to exit more proximal. These limbs were then threaded through the predrilled holes at the tip of the olecranon at the insertion of the triceps. They were shuttled through in a crisscross manner and then tied to the adjacent limb with the elbow in full extension. Attention was then turned to closure of the interval along the medial head of the triceps fascia. The triceps fascia was reapproximated to the elbow capsule and flexor pronator wad with 0 Vicryl in a [id number] fashion. Additionally, the periosteal envelope of the flexor pronator wad was reattached to the medial border of the triceps fascia as well as the medial epicondyle using transosseous suture. A subcutaneous fat sling was then made for the ulnar nerve with 4-0 Monocryl sutured back to the medial epicondyle. The subcutaneous tissue was then closed with 3-0 Vicryl in an interrupted fashion. The skin was then closed with annalise. The patient was immobilized in a posterior long arm splint. This completed the case. At the conclusion of the case, all sponge and instrument counts were correct x2. The patient had 2+ radial and ulnar pulse with a warm and well perfused hand. DISPOSITION: The patient was reversed from anesthesia and transferred to the PACU in stable condition. She tolerated the procedure well without apparent complication. POSTOPERATIVE RECOMMENDATIONS: 1. Strict nonweightbearing to the left upper extremity. 2. Maintain upper extremity elevation for edema control. 3. Maintain postoperative dressings in place until clinic followup. 4. Rehab protocol as follows. First 2 weeks, long-arm splint, finger range of motion, edema control. Weeks 2-6 long arm splint, OT fabricated. They come out of splint for unrestricted active and passive range of motion of the elbow. No resisted extension. Postoperative week 6 and beyond, begin resisted extension exercises, strengthening. Lifetime of 5 pounds max weight restrictions. Gregor Kerns MD, CM/blane , 08:20 PM , 08:56 PM
== END 2018-02-22 18:08 | disposition home or self-care (01) ==
LOC: HSDI 12:39 → N06 23:58
PROVIDERS: ADMIT Family Medicine; ATTEND Family Medicine